=== PATIENT | male | born 1960 | race Caucasian/White ===

== ENCOUNTER 2016-05-18 16:53 | Inpatient (IN) | payer MEDICARE, BC ==
[2016-05-18] MEDS ORDERED: DIAZEPAM 5 MG/ML 2 ML SYRINGE IVP STA (17:44)
[2016-05-18] MEDS ORDERED: ONDANSETRON 4 MG/2 ML VIAL IVP STA (17:44)
[2016-05-18] MEDS ORDERED: THIAMINE 100 MG/ML 2 ML VIAL IM STA (17:44)
[2016-05-18] MEDS ORDERED: SODIUM CHLORIDE 0.9% 1,000 ML IV STA (17:44)
[2016-05-18] MEDS ORDERED: SODIUM CHLORIDE 0.9% 1,000 ML IV ONE (17:44)
[2016-05-18] MEDS ORDERED: SODIUM CHLORIDE 0.9% 2,000 ML IV STA (17:44)
--- NOTE | 2016-05-18 17:44 | ED ---
General Adult HPI - General Chief complaint: Abdominal Pain Stated complaint: acute pancreatitis Time Seen by Provider: 05/18/16 17:01 Source: patient, EMS, RN notes reviewed, old records reviewed Mode of arrival: EMS Limitations: no limitations - History of Present Illness Initial comments: This is a 35-year-old male year for evaluation of abdominal pain and pancreatitis and alcohol ketoacidosis. Patient's transfer patient from [facility] for treatment of the above issues. Patient states he is currently resting comfortably specific or significant abdominal pain, little agitation secondary being polo around in the back exam is but no other complaints, no active nausea and vomiting. Symptoms at this point aren't improved - Related Data Home Medications Medication Instructions Recorded Confirmed Gabapentin [Neurontin] 400 mg PO TID 05/18/16 05/18/16 Hydrocodone/Acetaminophen [[place] 1 tab PO Q6HR PRN 05/18/16 05/18/16 7.5-325] traMADol HCL [Ultram] 50 mg PO Q6HR PRN 05/18/16 05/18/16 Allergies Allergy/AdvReac Type Severity Reaction Status Date / Time No Known Drug Allergies AdvReac Unknown Verified 05/18/16 17:19 Review of Systems ROS Statement: Those systems with pertinent positive or pertinent negative responses have been documented in the HPI. ROS Other: All systems not noted in ROS Statement are negative. Past Medical History Additional Past Medical History / Comment(s): Chronic pain in the right arm, alcoholic, pancreatitis, liver inflammation per pt History of Any Multi-Drug Resistant Organisms: None Reported Additional Past Surgical History / Comment(s): Neck surgery, lung surgery, Past Psychological History: No Psychological Hx Reported Smoking Status: Current every day smoker Past Alcohol Use History: Abuse, Daily, Heavy Past Drug Use History: Marijuana General Exam Limitations: no limitations General appearance: alert, in no apparent distress, anxious Head exam: Present: atraumatic, normocephalic, normal inspection Eye exam: Present: normal appearance, PERRL, EOMI. Absent: scleral icterus, conjunctival injection, periorbital swelling ENT exam: Present: mucous membranes dry, mucous membranes moist Neck exam: Present: normal inspection. Absent: tenderness, meningismus, lymphadenopathy Respiratory exam: Present: normal lung sounds bilaterally. Absent: respiratory distress, wheezes, rales, rhonchi, stridor Cardiovascular Exam: Present: normal rhythm, tachycardia, normal heart sounds. Absent: systolic murmur, diastolic murmur, rubs, gallop, clicks GI/Abdominal exam: Present: soft, normal bowel sounds. Absent: distended, tenderness, guarding, rebound, rigid Extremities exam: Present: normal inspection, full ROM, normal capillary refill. Absent: tenderness, pedal edema, joint swelling, calf tenderness Back exam: Present: normal inspection Neurological exam: Present: alert, oriented X3, CN II-XII intact Psychiatric exam: Present: normal affect, normal mood Skin exam: Present: warm, dry, intact, normal color. Absent: rash Course Vital Signs 05/18/16 16:57 Temperature 97.4 F L Pulse Rate 117 H Respiratory 14 Rate Blood Pressure 115/74 - Reevaluation(s) Reevaluation #1: 05/18/16 17:43 Patient does appear to be having mild symptoms of alcohol withdrawal at this time, we'll start patient on every 6 Valium and CIWA protocol 05/18/16 17:43 Medical Decision Making - Medical Decision Making 55 to ER for alcoholic ketoacidosis, alcoholic withdrawal pancreatitis. Patient will be admitted for IV fluid, hemogram and monitoring Disposition Clinical Impression: Alcohol withdrawal delirium, Alcoholic pancreatitis, Alcoholic ketoacidosis Disposition: ADMITTED IP TO THIS HOSP Condition: Fair Referrals: Kosta Da Silva DO [Primary Care Provider] - 1-2 days
[2016-05-18] MEDS ORDERED: DEXTROSE 5%-0.45% NACL 1,000 ML IV SCH (17:45)
[2016-05-18] MEDS: THIAMINE 100 MG TAB PO SCH (20:31)
[2016-05-18 20:34] LABS: INR 1.1 (<1.1); Prothrombin Time 10.9 sec (9.0-12.0)
[2016-05-18] MEDS: HYDROmorphone 1 MG/ML 1 ML SYRINGE IVP PRN (20:37)
[2016-05-18] MEDS: LORazepam 2 MG/ML SYRINGE IV PRN ×2 (20:47→22:00)
[2016-05-18] MEDS ORDERED: HALOPERIDOL 5 MG TAB PO PRN (20:54)
[2016-05-18 20:56] LABS: ALT 80 U/L (21-72); AST 170 U/L (17-59); Alkaline Phosphatase 151 U/L (38-126); Amylase 108 U/L (30-110); Anion Gap 25 mmol/L; Blood Urea Nitrogen 6 mg/dL (9-20); Calcium 7.9 mg/dL (8.4-10.2); Chloride 108 mmol/L (98-107); Glucose 72 mg/dL (74-99); Non-African American GFR(MDRD) >60 (>60 ml/min/1.73 sqM); Potassium 4.5 mmol/L (3.5-5.1); Sodium 141 mmol/L (137-145); Total Bilirubin 1.3 mg/dL (0.2-1.3); Total Protein 6.9 g/dL (6.3-8.2)
[2016-05-18 20:58] LABS: Carbon Dioxide 8 mmol/L (22-30)
[2016-05-18 21:06] LABS: Anisocytosis Slight; Basophils % (A) 0 %; CH 33.3; CHCM 30.2; Eosinophils % (A) 0 %; HCT 40.6 % (39.0-53.0); HDW 2.54; HGB 12.6 gm/dL (13.0-17.5); Hypochromasia Moderate; Luc # (Auto) 0.06; Luc % (Auto) 1; Lymphocytes # (A) 0.6 k/uL (1.0-4.8); Lymphocytes % (A) 9 %; MCH 34.4 pg (25.0-35.0); MCHC 31.1 g/dL (31.0-37.0); MCV 110.6 fL (80.0-100.0); Macrocytosis Marked; Monocytes # (A) 0.3 k/uL (0-1.0); Monocytes % (A) 5 %; Neutrophils # (A) 5.7 k/uL (1.3-7.7); Neutrophils % (A) 85 %; RBC 3.67 m/uL (4.30-5.90); RDW 17.7 % (11.5-15.5); WBC 6.7 k/uL (3.8-10.6); WBC (Perox) 7.49
[2016-05-18 21:23] LABS: Polychromasia Present
[2016-05-18 22:10] LABS: ABG PH 7.16 (7.35-7.45)
[2016-05-18 22:11] LABS: ABG HCO3 12 mmol/L (21-25); ABG PCO2 35 mmHg (35-45); ABG PO2 76 mmHg (83-108); ABG TCO2 13 mmol/L (19-24)
[2016-05-18 22:12] LABS: ABG Base Excess -15.3 mmol/L
[2016-05-18 22:13] LABS: ABG Oxygen Saturation 90.7 % (94-97)
[2016-05-18] MEDS: DEXTROSE 5% IN WATER 1,000 ML with SODIUM BICARB (1 MEQ/ML) 150 ML IV SCH ×2 (22:26→23:02)
[2016-05-18 22:27] LABS: Magnesium 1.4 mg/dL (1.6-2.3)
[2016-05-18] MEDS: 0.9% NACL WITH KCL 20 MEQ/L 1,000 ML with MVI, ADULT NO.4 WITH VIT K 10 ML, THIAMINE 10... IV SCH ×4 (22:29)
[2016-05-18] MEDS ORDERED: Magnesium Replacement Protocol 1 EACH MISC MISCELLANE PRN (22:40)
[2016-05-18] MEDS: HEPARIN SODIUM,PORCINE 5,000 UNIT/ML 1 ML VIAL SQ SCH (22:55)
[2016-05-18] MEDS: PANTOPRAZOLE 40 MG/10 ML VIAL IVP SCH (22:55)
[2016-05-18] MEDS: GABAPENTIN 400 MG CAP PO SCH (22:56)
[2016-05-18] MEDS: MAGNESIUM SULFATE-D5W PMX 1 GM in DEXTROSE/WATER 1 100ML.BAG IVPB SCH (23:47)
[2016-05-19 00:26] LABS: Glucose,Whole Blood 113 mg/dL (75-99)
[2016-05-19] MEDS: MAGNESIUM SULFATE-D5W PMX 1 GM in DEXTROSE/WATER 1 100ML.BAG IVPB SCH ×2 (00:57→02:00)
[2016-05-19 02:16] LABS: ABG PCO2 30 mmHg (35-45)
[2016-05-19 02:17] LABS: ABG HCO3 14 mmol/L (21-25); ABG PO2 88 mmHg (83-108); ABG TCO2 15 mmol/L (19-24)
[2016-05-19] MEDS: LORazepam 2 MG/ML SYRINGE IV PRN ×5 (02:41→23:03)
[2016-05-19] MEDS: HYDROmorphone 1 MG/ML 1 ML SYRINGE IVP PRN ×5 (02:57→23:32)
[2016-05-19 05:03] LABS: ALT 74 U/L (21-72); AST 149 U/L (17-59); Alkaline Phosphatase 141 U/L (38-126); Amylase 74 U/L (30-110); Anion Gap 19 mmol/L; Blood Urea Nitrogen 6 mg/dL (9-20); Calcium 7.6 mg/dL (8.4-10.2); Carbon Dioxide 14 mmol/L (22-30); Chloride 105 mmol/L (98-107); Cholesterol 159 mg/dL (<200); Glucose 145 mg/dL (74-99); HDL Cholesterol 94 mg/dL (40-60); Magnesium 2.5 mg/dL (1.6-2.3); Non-African American GFR(MDRD) >60 (>60 ml/min/1.73 sqM); Phosphorous 1.9 mg/dL (2.5-4.5); Prothrombin Time 10.3 sec (9.0-12.0); Sodium 138 mmol/L (137-145); Total Bilirubin 1.3 mg/dL (0.2-1.3); Triglycerides 200 mg/dL (<150)
[2016-05-19 05:12] LABS: Anisocytosis Slight; CHCM 31.3; HCT 35.7 % (39.0-53.0); HDW 2.59; HGB 11.3 gm/dL (13.0-17.5); Hypochromasia Slight; MCH 34.4 pg (25.0-35.0); MCHC 31.6 g/dL (31.0-37.0); MCV 108.8 fL (80.0-100.0); Macrocytosis Marked; RBC 3.28 m/uL (4.30-5.90); RDW 17.8 % (11.5-15.5); WBC 4.2 k/uL (3.8-10.6); WBC (Perox) 4.67
[2016-05-19] MEDS: 0.9% NACL WITH KCL 20 MEQ/L 1,000 ML with MVI, ADULT NO.4 WITH VIT K 10 ML, THIAMINE 10... IV SCH ×12 (06:25→16:54)
[2016-05-19 06:30] LABS: Glucose,Whole Blood 160 mg/dL (75-99)
[2016-05-19] MEDS: INSULIN LISPRO (humaLOG) 300 UNIT/3 ML VIAL SQ SCH ×3 (06:43→17:58)
[2016-05-19 06:51] LABS: Add Differential Manual Differential
[2016-05-19 06:55] LABS: Nucleated Red Blood Cells 0 /100 WBC (0-0); Total Cells Counted 100
[2016-05-19] MEDS ORDERED: Phosphorus Replacement Protoco 1 EACH MISC MISCELLANE PRN (06:56)
[2016-05-19 06:59] LABS: Manual Review Performed
[2016-05-19] MEDS: SODIUM PHOSPHATE 10 MMOL in SODIUM CHLORIDE 0.9% 250 ML IVPB SCH ×2 (07:46→10:11)
[2016-05-19] MEDS: PANTOPRAZOLE 40 MG/10 ML VIAL IVP SCH (08:00)
[2016-05-19] MEDS: GABAPENTIN 400 MG CAP PO SCH ×3 (08:00→22:35)
[2016-05-19] MEDS: HEPARIN SODIUM,PORCINE 5,000 UNIT/ML 1 ML VIAL SQ SCH ×2 (08:00→20:52)
--- NOTE | 2016-05-19 08:10 | XR ---
EXAMINATION TYPE: XR chest 1V DATE OF EXAM: 05/19/2016 6:54 AM COMPARISON: NONE HISTORY: 55-year-old male with shortness of breath TECHNIQUE: Single frontal view of the chest is obtained. FINDINGS: Low lung volumes with crowded vascular markings. Strandy opacities at the lower lungs. Bony vasculatu re may be mildly prominent. No lyndsey consolidation or significant pleural effusion. IMPRESSION: Hypoventilatory changes. Strandy atelectasis in the lung bases. Correlate for possible mild pulmonary vascular congestion.
--- NOTE | 2016-05-19 08:52 | HP ---
DATE OF ADMISSION: 05/18/2016 CHIEF COMPLAINT: Abdominal pain. HISTORY OF PRESENT ILLNESS: This 55-year-old gentleman with a past medical history of multiple medical problems including chronic liver disease, history of chronic pain, history of alcoholic pancreatitis, history of liver inflammation, history of significant alcohol intake being followed by Dr. Da Silva in [place], presented to [facility] with complaints of abdominal pain. The abdominal pain started about 2 or 3 days ago, started with pain on the side subsequently to the anterior part of the chest and patient also had some vomiting. The patient Hospital and was transferred to [facility] for further evaluation and treatment. The patient is slightly confused. The patient is tremulous, the patient has early signs of delirium tremens, alcohol withdrawals also. There is no history of headache, loss of consciousness or seizures. PAST MEDICAL HISTORY: History of liver disease, chronic pain syndrome, history of alcoholic pancreatitis, history of neck surgery, degenerative joint disease, history of nicotine dependence. History of claustrophobia. MEDICATIONS: Prior to admission include: 1. Hydrocodone 1 tablet q.6 p.r.n. 2. Ultram 50 mg q6h p.r.n. 3. Neurontin 400 mg t.i.d. ALLERGIES: None. FAMILY HISTORY: History of cystic fibrosis. SOCIAL HISTORY: History of smoking on a daily basis. History of alcohol also up to a fifth of hard liquor. REVIEW OF SYSTEMS: ENT: No diminished vision. No diminished hearing. CARDIOVASCULAR: No angina or palpitation. RESPIRATORY: No cough. GI: As mentioned earlier. : No dysuria. Nervous system: No numbness, weakness. ALLERGY/IMMUNOLOGY: No asthma or hayfever. MUSCULOSKELETAL: As mentioned earlier. HEMATOLOGY/ONCOLOGY: No history of anemia. ENDOCRINE: No history of diabetes or hypothyroidism. CONSTITUTIONAL: As mentioned earlier. DERMATOLOGY: Negative. RHEUMATOLOGY: Negative. PSYCHIATRY: As mentioned earlier. PHYSICAL EXAMINATION: Alert and oriented times three. Pulse 115. Blood pressure 143/92. Respiratory rate 14. Temperature 98.2, pulse ox 97% on 2 L. HEENT: Conjunctivae normal. NECK: No jugular venous distention. CARDIOVASCULAR: S1, S2 muffled. RESPIRATORY: Breath sounds diminished at the bases, a few scattered rhonchi, no crackles. ABDOMEN: Soft. Mild diffuse distention. Mild diffuse discomfort on palpation. No guarding or rigidity. No mass palpable. Minimal tenderness in the epigastrium. Bowel sounds present. No ascites. No hepatosplenomegaly. No guarding, no rigidity. Legs: No edema, no swelling. Nervous system: Higher function as mentioned earlier. Moves all 4 limbs. No focal motor or sensory deficits. LYMPHATICS: No lymph nodes palpable in the neck, axillae or groin. cranial nerves II through XII grossly intact. Lab investigations are pending at this time. INR is 1.1. ASSESSMENT: 1. Acute severe pancreatitis, severe abdominal pain. 2. Early delirium tremens and alcohol withdrawal. 3. History of alcoholic pancreatitis. 4. Chronic pain syndrome. 5. History of chronic liver disease. 6. Significant history ETOH. 7. Claustrophobia. 8. History of nicotine dependence. 9. History of THC. 10. FULL CODE. RECOMMENDATIONS AND DISCUSSION: In this 55 -year-old gentleman presented with multiple complex medical issues. We will monitor the patient closely. Continue the current medications. Continue symptomatic treatment. Otherwise, at this time, I recommend amylase, lipase, and continue to monitor. Would also recommend gastroenterology consultation and , continue symptomatic treatment. Continue to monitor. Guarded prognosis because of multiple complex medical issues. Further recommendations to follow. See orders for further details. Pain medications. CIWA protocol. Alcohol withdrawal precautions. DVT prophylaxis. Guarded prognosis because of multiple complex medical issues. Further recommendations to follow. Labs were ordered. A copy of dictation being forwarded to Dr. Da Silva who is the primary care physician. [facility]
[2016-05-19 08:58] LABS: ABG HCO3 19 mmol/L (21-25); ABG PCO2 35 mmHg (35-45); ABG PH 7.35 (7.35-7.45); ABG PO2 93 mmHg (83-108); ABG TCO2 20 mmol/L (19-24)
[2016-05-19 08:59] LABS: ABG Base Excess -5.9 mmol/L
--- NOTE | 2016-05-19 10:13 | P.CONS ---
History of Present Illness - Reason for Consult Consult date: 05/19/16 Pancreatitis Requesting physician: Ravindra Andrea - History of Present Illness 55-year-old gentleman with a history of long-standing EtOH abuse drinks a fifth of whiskey a day, nicotine cigarette dependency, marijuana, lung surgery requiring chest tube, and degenerative disc disease. Patient may with acute abdominal pain in the upper abdomen for the last few days with elevated lipase and liver enzymes. Admission white count 6.7. Hemoglobin 12.6. MCV 110. Platelet 106. INR 1.1. Blood gas pH 7.1. Receiving intravenous bicarbonate. Total bilirubin 1.3. AST 170. ALT 80. BUN 6. Creatinine 0.9. CO2 8. Glucose 72. Calcium 7.9. Alkaline phosphatase 151. Lipase 2260. Amylase 74. Serum alcohol 33. CO2 8. BUN 6. Creatinine 0.9. Glucose 72. Calcium 7.9. Triglycerides 200. Ammonia 32. Ultrasound abdomen pending. No reports of fever, chills, hematemesis, hematochezia, or melena. Review of Systems Constitutional: Denies fever, chills, sweats, weight gain, or loss. HEENT: Negative for migraines, blurred vision or loss, earaches, drainage, tinnitus, oral mucosal lesions, dysphagia, or odynophagia. Cardiac: Negative for chest pain, arrhythmias, or palpitation. Respiratory: Lung surgery requiring chest tube. Nicotine cigarette dependency. Marijuana. Negative for shortness of breath, hemoptysis, cough, or sputum production. Gastrointestinal: See HPI for pertinent findings. Genitourinary: Negative for hematuria, urgency, frequency, polyuria, dysuria, or penile discharge. Musculoskeletal: Degenerative disc disease. Negative for muscle aches, swelling , arthritis, and arthralgias. Neurologic: Negative for stroke or TIA. Endocrine: Negative for thyroid problems. Skin: Negative for rash or itching. Psychiatric: Negative history for depression and anxiety All systems: negative (See HPI) Past Medical History Past Medical History: Liver Disease Additional Past Medical History / Comment(s): Chronic pain in the right arm, alcoholic, pancreatitis, liver inflammation per pt, DDD, UPPER BRIDGE History of Any Multi-Drug Resistant Organisms: None Reported Additional Past Surgical History / Comment(s): Neck surgery HAS A PLATE, lung surgery D/T INFECTION HAD A CHEST TUBE AFTER SX., Past Anesthesia/Blood Transfusion Reactions: No Reported Reaction Additional Past Anesthesia/Blood Transfusion Reaction / Comm: CLAUSTERPHOBIA Past Psychological History: No Psychological Hx Reported Additional Psychological History / Comment(s): PT STATED HE IS CURRENTLY SEPARATE FROM HIS . LIVES ALONE WITH 1 [employer]. NO HOME CARE SERVICES AND NO HOSITAL EQUIPMENT. PT IS INDEPENDANT. HAS 3 STEPS TO GET INTO HOME. NO SERVICE IN PAST. REITED FROM [employer]. Smoking Status: Current every day smoker Past Alcohol Use History: Abuse, Daily, Heavy Additional Past Alcohol Use History / Comment(s): STARTED SMOKING AT AGE 16 ( 1976) SMOKED 1/2-1 PPD. ADMIKTS TO DRINKING 1/2 TO 1 FITH OF WHISKEY PER DAY Past Drug Use History: Marijuana Additional Drug Use History / Comment(s): HAS'NT USED ANY MARIJUANA IN 2-3 WEEKS. - Past Family History Mother Additional Family Medical History / Comment(s): FROM CYSTIC FIBROSIS Father Family Medical History: No Reported History Additional Family Medical History / Comment(s): FROM "NATURAL CAUSES" Medications and Allergies Home Medications Medication Instructions Recorded Confirmed Type Gabapentin [Neurontin] 400 mg PO TID 05/18/16 05/18/16 History Hydrocodone/Acetaminophen [[place] 1 tab PO Q6HR PRN 05/18/16 05/18/16 History 7.5-325] traMADol HCL [Ultram] 50 mg PO Q6HR PRN 05/18/16 05/18/16 History Allergies Allergy/AdvReac Type Severity Reaction Status Date / Time No Known Drug Allergies AdvReac Unknown Verified 05/18/16 17:19 Physical Exam Vitals: Vital Signs Temp Pulse Resp BP Pulse Ox 05/19/16 09:00 104 H 12 156/92 95 05/19/16 08:00 98.8 F 113 H 14 162/92 95 05/19/16 07:00 108 H 11 L 154/92 92 L 05/19/16 06:00 103 H 12 174/94 95 05/19/16 05:00 105 H 11 L 168/84 95 05/19/16 04:00 98.1 F 110 H 11 L 141/81 94 L 05/19/16 03:00 111 H 14 167/80 92 L 05/19/16 02:00 114 H 13 151/79 94 L 05/19/16 01:00 116 H 11 L 148/81 94 L 05/19/16 00:00 99.8 F H 113 H 10 L 136/82 95 05/18/16 23:30 113 H 10 L 152/84 95 05/18/16 23:00 115 H 9 L 142/90 96 05/18/16 22:30 99 F 112 H 12 142/90 93 L 05/18/16 19:05 98.2 F 115 H 14 143/92 96 05/18/16 18:38 114 H 12 118/74 93 L 05/18/16 18:32 117 H 14 140/86 95 Intake and Output 05/18/16 05/19/16 05/19/16 22:59 06:59 14:59 Intake Total 2275 725 Output Total 275 Balance 1999 725 Intake: Intake, IV Titration 2274 725 Amount 0.9% NaCl with KCl 20 Meq 1200 300 /l 1,000 ml @ 150 mls/hr IV .[id number] MARTHA with Mvi, Adult No.4 with Vit K 10 ml with Thiamine 100 mg with Folic Acid 1 mg Rx#: [id number] Dextrose 5% in Water 1, 775 300 000 ml @ 100 mls/hr IV . [id number] MARTHA with Sodium Bicarb (1 Meq/ml) 150 ml Rx#:[id number] Magnesium Sulfate-D5w Pmx 300 1 gm In Dextrose/Water 1 100ml.bag @ 100 mls/hr IVPB Q1H MARTHA Rx#: [id number] Sodium Phosphate 10 mmol 125 In Sodium Chloride 0.9% 250 ml @ 125 mls/hr IVPB Q2H MARTHA Rx#:[id number] Output: Urine 275 Other: Voiding Method Urinal Urinal # Voids 1 Weight 68.311 kg General appearance: The patient is drowsy but awakens with appropriate conversation. HET: Head is normocephalic and atraumatic. Pupils are equal and reactive. Oropharynx is clear without lesions. Neck: Supple without lymphadenopathy. Trachea midline. Heart: S1 S2. Regular rate and rhythm. Lungs: No crackles or wheezes are heard. Abdomen: Soft, bloated tenderness midepigastrium with hypoactive bowel sounds. No peritoneal signs. No palpable organomegaly or masses. Extremities: Normal skin color and turgor. No cyanosis, rash, ulceration, clubbing, or edema. Radial and pedal pulses are 2/4 bilaterally. Neurological: Intermittent shakiness while resting. Results CBC & Chem 7: 05/19/16 03:57 05/19/16 03:57 Labs: Abnormal Lab Results - Last 24 Hours (Table) 05/18/16 05/18/16 05/18/16 Range/Units 20:13 20:13 21:32 RBC 3.67 L (4.30-5.90) m/uL Hgb 12.6 L (13.0-17.5) gm/dL Hct (39.0-53.0) % MCV 110.6 H (80.0-100.0) fL RDW 17.7 H (11.5-15.5) % Plt Count 106 L (150-450) k/uL Lymphocytes # 0.6 L (1.0-4.8) k/uL Lymphocytes # (Manual) (1.0-4.8) k/uL ABG pH 7.16 L* (7.35-7.45) ABG pCO2 (35-45) mmHg ABG pO2 76 L (83-108) mmHg ABG HCO3 12 L (21-25) mmol/L ABG Total CO2 13 L (19-24) mmol/L ABG O2 Saturation 90.7 L (94-97) % Chloride 108 H (98-107) mmol/L Carbon Dioxide 8 L* (22-30) mmol/L BUN 6 L (9-20) mg/dL Glucose 72 L (74-99) mg/dL POC Glucose (mg/dL) (75-99) mg/dL Calcium 7.9 L (8.4-10.2) mg/dL Phosphorus (2.5-4.5) mg/dL Magnesium (1.6-2.3) mg/dL AST 170 H (17-59) U/L ALT 80 H (21-72) U/L Alkaline Phosphatase 151 H (38-126) U/L Total Protein (6.3-8.2) g/dL Albumin (3.5-5.0) g/dL Triglycerides (<150) mg/dL HDL Cholesterol (40-60) mg/dL Lipase (23-300) U/L 05/18/16 05/19/16 05/19/16 Range/Units 21:48 00:24 02:10 RBC (4.30-5.90) m/uL Hgb (13.0-17.5) gm/dL Hct (39.0-53.0) % MCV (80.0-100.0) fL RDW (11.5-15.5) % Plt Count (150-450) k/uL Lymphocytes # (1.0-4.8) k/uL Lymphocytes # (Manual) (1.0-4.8) k/uL ABG pH 7.30 L (7.35-7.45) ABG pCO2 30 L (35-45) mmHg ABG pO2 (83-108) mmHg ABG HCO3 14 L (21-25) mmol/L ABG Total CO2 15 L (19-24) mmol/L ABG O2 Saturation (94-97) % Chloride (98-107) mmol/L Carbon Dioxide (22-30) mmol/L BUN (9-20) mg/dL Glucose (74-99) mg/dL POC Glucose (mg/dL) 113 H (75-99) mg/dL Calcium (8.4-10.2) mg/dL Phosphorus (2.5-4.5) mg/dL Magnesium 1.4 L (1.6-2.3) mg/dL AST (17-59) U/L ALT (21-72) U/L Alkaline Phosphatase (38-126) U/L Total Protein (6.3-8.2) g/dL Albumin (3.5-5.0) g/dL Triglycerides (<150) mg/dL HDL Cholesterol (40-60) mg/dL Lipase (23-300) U/L 05/19/16 05/19/16 05/19/16 Range/Units 03:57 03:57 06:28 RBC 3.28 L (4.30-5.90) m/uL Hgb 11.3 L (13.0-17.5) gm/dL Hct 35.7 L (39.0-53.0) % MCV 108.8 H (80.0-100.0) fL RDW 17.8 H (11.5-15.5) % Plt Count 64 L (150-450) k/uL Lymphocytes # (1.0-4.8) k/uL Lymphocytes # (Manual) 0.7 L (1.0-4.8) k/uL ABG pH (7.35-7.45) ABG pCO2 (35-45) mmHg ABG pO2 (83-108) mmHg ABG HCO3 (21-25) mmol/L ABG Total CO2 (19-24) mmol/L ABG O2 Saturation (94-97) % Chloride (98-107) mmol/L Carbon Dioxide 14 L (22-30) mmol/L BUN 6 L (9-20) mg/dL Glucose 145 H (74-99) mg/dL POC Glucose (mg/dL) 160 H (75-99) mg/dL Calcium 7.6 L (8.4-10.2) mg/dL Phosphorus 1.9 L (2.5-4.5) mg/dL Magnesium 2.5 H (1.6-2.3) mg/dL AST 149 H (17-59) U/L ALT 74 H (21-72) U/L Alkaline Phosphatase 141 H (38-126) U/L Total Protein 6.0 L (6.3-8.2) g/dL Albumin 3.4 L (3.5-5.0) g/dL Triglycerides 200 H (<150) mg/dL HDL Cholesterol 94 H (40-60) mg/dL Lipase 2260 H (23-300) U/L 05/19/16 Range/Units 08:32 RBC (4.30-5.90) m/uL Hgb (13.0-17.5) gm/dL Hct (39.0-53.0) % MCV (80.0-100.0) fL RDW (11.5-15.5) % Plt Count (150-450) k/uL Lymphocytes # (1.0-4.8) k/uL Lymphocytes # (Manual) (1.0-4.8) k/uL ABG pH (7.35-7.45) ABG pCO2 (35-45) mmHg ABG pO2 (83-108) mmHg ABG HCO3 19 L (21-25) mmol/L ABG Total CO2 (19-24) mmol/L ABG O2 Saturation (94-97) % Chloride (98-107) mmol/L Carbon Dioxide (22-30) mmol/L BUN (9-20) mg/dL Glucose (74-99) mg/dL POC Glucose (mg/dL) (75-99) mg/dL Calcium (8.4-10.2) mg/dL Phosphorus (2.5-4.5) mg/dL Magnesium (1.6-2.3) mg/dL AST (17-59) U/L ALT (21-72) U/L Alkaline Phosphatase (38-126) U/L Total Protein (6.3-8.2) g/dL Albumin (3.5-5.0) g/dL Triglycerides (<150) mg/dL HDL Cholesterol (40-60) mg/dL Lipase (23-300) U/L US - abdomen: pending Assessment and Plan (1) Acute alcoholic pancreatitis Status: Acute (2) Alcohol withdrawal delirium Status: Acute Plan: 1. Aggressive IV hydration maintenance fluids at 150 mL an hour. 2. Alcohol withdrawal protocol. Nothing by mouth except medications and ice chips. 3. Ultrasound abdomen; results pending. 4. Alcohol abstinence advised and counseled. 5. Repeat liver pancreatic chemistries ammonia level in the a.m. 6. GI prophylaxis. Protonix 40 mg IV daily. Thank you for this kind referral and the opportunity to participate in the care of your patient. This consultation was discussed with Dr. Mcmillan. The impression and plan of care have been directed as dictated.
[2016-05-19 10:20] LABS: Appearance,Urine Clear (Clear); Bacteria,Urine Rare /hpf; Bilirubin,Urine 1+ (Negative); Glucose,Urine (UA) Negative (Negative); Ketones,Urine 4+ (Negative); Leukocyte Esterase,Urine Negative (Negative); Mucus,Urine Rare /hpf; Nitrite,Urine Negative (Negative); Particle Count 4327; Protein,Urine 1+ (Negative); RBC,Urine <1 /hpf (0-5); Specific Gravity,Urine 1.024 (1.001-1.035); Squamous Epithelial Cell,Urine 4 /hpf (0-4); UA Billing (MACRO vs. MICRO) MICRO; WBC,Urine <1 /hpf (0-5)
[2016-05-19] MEDS: LACTULOSE 20 GM/30 ML CUP PO SCH (10:38)
--- NOTE | 2016-05-19 10:38 | US ---
EXAMINATION TYPE: US abdomen limited DATE OF EXAM: 05/19/2016 9:56 AM COMPARISON: NONE CLINICAL HISTORY: 55-year-old male with elevated Liver Enzymes. ICU patient. TECHNIQUE: Multiple sonographic images of the right upper quadrant are obtained. FINDINGS: Liver Length: 23.8 cm Gallbladder Wall: 0.4 cm CBD: 7.3 mm Right Kidney: 11.2 x 5.3 x 4.6 cm Pancreas: limited views secondary to bowel gas. Liver: Enlarged, echogenic, and attenuating. This secondarily limits assessment for focal lesion. Gallbladder: There may be trace pericholecystic fluid versus adjacent focal fatty sparing along the gallbladder fossa. Gallbladder wall is mildly thickened and there is suggestion of dependent sludge. Evidence for sonographic Alatorre's sign: no CBD: Borderline to mildly dilated. Right Kidney: wnl IMPRESSION: 1. Marked hepatomegaly and severe hepatic steatosis. Correlate with LFTs, lipid profile, and patient risk factors. 2. Correlate to exclude early acute cholecystitis. There is mild gallbladder wall thickening and slud ge. This is equivocal as possible pericholecystic fluid could represent fatty sparing along the gallb ladder fossa and there is no positive sonographic Alatorre's sign. Further evaluation with HIDA scan as indicated. 3. Borderline to mild dilatation of the bile duct. Correlate with alkaline phosphatase and bilirubin levels.
--- NOTE | 2016-05-19 12:52 | P.CNPUL ---
History of Present Illness Consult date: 05/19/16 Requesting physician: Ravindra Andrea Reason for consult: other (ICU management) Chief complaint: abdominal pain History of present illness: this is a 55-year-old white male with history of long-standing history of alcohol abuse, patient drinks a fifth of whiskey on a daily basis, history of nicotine dependence, degenerative disc disease, presented to the ER with acute abdominal pain associated with some nausea vomiting and diarrhea. Patient was initially admitted to the regular medical floor, however the A TEAM was called on the patient at night, were and the patient was getting restless agitated, and an ABG showed significant metabolic acidosis. Hence I recommended transferring the patient to the ICU placed on a sodium bicarb drip, and I was asked to see him on consultation. Patient is not the best historian. His labs clearly revealed evidence of pancreatitis with significantly elevated amylase and lipase. He also had a serum alcohol of 33, bicarb was only 8, and his pH was 7.1. Ammonia level was 32. Review of Systems ROS unobtainable: due to mental status Past Medical History Past Medical History: Liver Disease Additional Past Medical History / Comment(s): Chronic pain in the right arm, alcoholic, pancreatitis, liver inflammation per pt, DDD, UPPER BRIDGE History of Any Multi-Drug Resistant Organisms: None Reported Additional Past Surgical History / Comment(s): Neck surgery HAS A PLATE, lung surgery D/T INFECTION HAD A CHEST TUBE AFTER SX., Past Anesthesia/Blood Transfusion Reactions: No Reported Reaction Additional Past Anesthesia/Blood Transfusion Reaction / Comment(s): CLAUSTERPHOBIA Past Psychological History: No Psychological Hx Reported Additional Psychological History / Comment(s): PT STATED HE IS CURRENTLY SEPARATE FROM HIS . LIVES ALONE WITH 1 [employer]. NO HOME CARE SERVICES AND NO HOSITAL EQUIPMENT. PT IS INDEPENDANT. HAS 3 STEPS TO GET INTO HOME. NO SERVICE IN PAST. REITED FROM [facility]. Smoking Status: Current every day smoker Past Alcohol Use History: Abuse, Daily, Heavy Additional Past Alcohol Use History / Comment(s): STARTED SMOKING AT AGE 16 ( 1976) SMOKED 1/2-1 PPD. ADMIKTS TO DRINKING 1/2 TO 1 FITH OF WHISKEY PER DAY Past Drug Use History: Marijuana Additional Drug Use History / Comment(s): HAS'NT USED ANY MARIJUANA IN 2-3 WEEKS. - Past Family History Mother Additional Family Medical History / Comment(s): FROM CYSTIC FIBROSIS Father Family Medical History: No Reported History Additional Family Medical History / Comment(s): FROM "NATURAL CAUSES" Medications and Allergies Home Medications Medication Instructions Recorded Confirmed Type Gabapentin [Neurontin] 400 mg PO TID 05/18/16 05/18/16 History Hydrocodone/Acetaminophen [[place] 1 tab PO Q6HR PRN 05/18/16 05/18/16 History 7.5-325] traMADol HCL [Ultram] 50 mg PO Q6HR PRN 05/18/16 05/18/16 History Allergies Allergy/AdvReac Type Severity Reaction Status Date / Time No Known Drug Allergies AdvReac Unknown Verified 05/18/16 17:19 Physical Exam Vitals: Vital Signs Temp Pulse Resp BP Pulse Ox 05/19/16 11:15 98 10 L 124/72 96 05/19/16 11:00 99 9 L 158/85 95 05/19/16 10:45 100 11 L 158/85 95 05/19/16 10:30 96 11 L 143/94 93 L 05/19/16 10:15 107 H 12 143/94 95 05/19/16 10:00 112 H 17 164/91 96 05/19/16 09:45 99 10 L 164/91 95 05/19/16 09:30 100 12 164/91 95 05/19/16 09:15 101 H 10 L 167/90 95 05/19/16 09:00 104 H 12 156/92 95 05/19/16 08:00 98.8 F 113 H 14 162/92 95 05/19/16 07:00 108 H 11 L 154/92 92 L 05/19/16 06:00 103 H 12 174/94 95 05/19/16 05:00 105 H 11 L 168/84 95 05/19/16 04:00 98.1 F 110 H 11 L 141/81 94 L 05/19/16 03:00 111 H 14 167/80 92 L 05/19/16 02:00 114 H 13 151/79 94 L 05/19/16 01:00 116 H 11 L 148/81 94 L 05/19/16 00:00 99.8 F H 113 H 10 L 136/82 95 05/18/16 23:30 113 H 10 L 152/84 95 05/18/16 23:00 115 H 9 L 142/90 96 05/18/16 22:30 99 F 112 H 12 142/90 93 L 05/18/16 19:05 98.2 F 115 H 14 143/92 96 05/18/16 18:38 114 H 12 118/74 93 L 05/18/16 18:32 117 H 14 140/86 95 Intake and Output 05/18/16 05/19/16 05/19/16 22:59 06:59 14:59 Intake Total 2275 1200 Output Total 275 950 Balance 2000 250 Intake: Intake, IV Titration 2275 1200 Amount 0.9% NaCl with KCl 20 Meq 1200 450 /l 1,000 ml @ 150 mls/hr IV .Q6H45M MARTHA with Mvi, Adult No.4 with Vit K 10 ml with Thiamine 100 mg with Folic Acid 1 mg Rx#: [id number] Dextrose 5% in Water 1, 775 500 000 ml @ 100 mls/hr IV . [id number] MARTHA with Sodium Bicarb (1 Meq/ml) 150 ml Rx#:[id number] Magnesium Sulfate-D5w Pmx 300 1 gm In Dextrose/Water 1 100ml.bag @ 100 mls/hr IVPB Q1H MARTHA Rx#: [id number] Sodium Phosphate 10 mmol 250 In Sodium Chloride 0.9% 250 ml @ 125 mls/hr IVPB Q2H MARTHA Rx#:[id number] Output: Urine 275 950 Uretheral (Toney) 250 Other: Voiding Method Urinal Urinal # Voids 1 Weight 68.311 kg Gen. appearance: Patient is drowsy but arousable, unable to maintain an appropriate conversation. HEENT: No neck masses no JVD no thyromegaly and no jaundice. Chest diminished breath sounds at the bases no crackles or rhonchi or wheezes Abdomen: Soft, slight tenderness in the epigastric area, hypoactive bowel sounds. Extremities no clubbing edema or cyanosis Neurologic, lethargic, follows simple instructions otherwise no focal neurologic deficit. Results - Laboratory Findings CBC and BMP: 05/19/16 03:57 05/19/16 03:57 ABG ABG pH 7.35 (7.35-7.45) 05/19/16 08:32 ABG pCO2 35 mmHg (35-45) 05/19/16 08:32 ABG pO2 93 mmHg (83-108) 05/19/16 08:32 ABG O2 Saturation 97.0 % (94-97) 05/19/16 08:32 PT/INR, D-dimer PT 10.3 sec (9.0-12.0) 05/19/16 03:57 INR 1.0 (<1.1) 05/19/16 03:57 Abnormal lab findings: Abnormal Labs 05/18/16 05/18/16 05/18/16 20:13 20:13 21:32 RBC 3.67 L Hgb 12.6 L Hct MCV 110.6 H RDW 17.7 H Plt Count 106 L Lymphocytes # 0.6 L Lymphocytes # (Manual) ABG pH 7.16 L* ABG pCO2 ABG pO2 76 L ABG HCO3 12 L ABG Total CO2 13 L ABG O2 Saturation 90.7 L Chloride 108 H Carbon Dioxide 8 L* BUN 6 L Glucose 72 L POC Glucose (mg/dL) Calcium 7.9 L Phosphorus Magnesium AST 170 H ALT 80 H Alkaline Phosphatase 151 H Ammonia Total Protein Albumin Triglycerides HDL Cholesterol Lipase Urine Protein Urine Ketones Urine Bilirubin Urine Bacteria Urine Mucus 05/18/16 05/19/16 05/19/16 21:48 00:24 02:10 RBC Hgb Hct MCV RDW Plt Count Lymphocytes # Lymphocytes # (Manual) ABG pH 7.30 L ABG pCO2 30 L ABG pO2 ABG HCO3 14 L ABG Total CO2 15 L ABG O2 Saturation Chloride Carbon Dioxide BUN Glucose POC Glucose (mg/dL) 113 H Calcium Phosphorus Magnesium 1.4 L AST ALT Alkaline Phosphatase Ammonia Total Protein Albumin Triglycerides HDL Cholesterol Lipase Urine Protein Urine Ketones Urine Bilirubin Urine Bacteria Urine Mucus 05/19/16 05/19/16 05/19/16 03:57 03:57 06:28 RBC 3.28 L Hgb 11.3 L Hct 35.7 L MCV 108.8 H RDW 17.8 H Plt Count 64 L Lymphocytes # Lymphocytes # (Manual) 0.7 L ABG pH ABG pCO2 ABG pO2 ABG HCO3 ABG Total CO2 ABG O2 Saturation Chloride Carbon Dioxide 14 L BUN 6 L Glucose 145 H POC Glucose (mg/dL) 160 H Calcium 7.6 L Phosphorus 1.9 L Magnesium 2.5 H AST 149 H ALT 74 H Alkaline Phosphatase 141 H Ammonia Total Protein 6.0 L Albumin 3.4 L Triglycerides 200 H HDL Cholesterol 94 H Lipase 2260 H Urine Protein Urine Ketones Urine Bilirubin Urine Bacteria Urine Mucus 05/19/16 05/19/16 05/19/16 08:32 09:15 10:00 RBC Hgb Hct MCV RDW Plt Count Lymphocytes # Lymphocytes # (Manual) ABG pH ABG pCO2 ABG pO2 ABG HCO3 19 L ABG Total CO2 ABG O2 Saturation Chloride Carbon Dioxide BUN Glucose POC Glucose (mg/dL) Calcium Phosphorus Magnesium AST ALT Alkaline Phosphatase Ammonia 32 H Total Protein Albumin Triglycerides HDL Cholesterol Lipase Urine Protein 1+ H Urine Ketones 4+ H Urine Bilirubin 1+ H Urine Bacteria Rare H Urine Mucus Rare H Assessment and Plan Plan: impression: 1 acute alcoholic pancreatitis 2 acute alcohol withdrawal and delirium 3 history of chronic pain syndrome 4 history of chronic liver disease 5 history of nicotine dependence Recommendation: Continue present treatment plan including hydration, sodium bicarb drip for now, alcohol withdrawal protocol, GI and DVT prophylaxis, close monitoring in the intensive care unit, and he is being seen by many other consultants including gastroenterology. We'll continue to follow. Time with Patient: Greater than 30
[2016-05-19] MEDS: THIAMINE 100 MG TAB PO SCH ×2 (12:59→17:52)
[2016-05-19 13:01] LABS: Glucose,Whole Blood 163 mg/dL (75-99)
[2016-05-19 16:12] LABS: Hemoglobin A1C 5.4 % (4.2-6.1)
[2016-05-19] MEDS: IOHEXOL 350 MG/ML 25 ML BOTTLE (ORAL USE) PO PRN ×2 (16:53→17:44)
[2016-05-19] MEDS: MEROPENEM 2 GM in SODIUM CHLORIDE 0.9% 100 ML IVPB SCH ×2 (17:52→23:38)
[2016-05-19 17:58] LABS: Glucose,Whole Blood 184 mg/dL (75-99)
--- NOTE | 2016-05-19 19:28 | CT ---
EXAMINATION TYPE: CT abdomen pelvis wo con DATE OF EXAM: 05/19/2016 6:32 PM COMPARISON: NONE HISTORY: Epigastric pain, possible cholecystitis. CT DLP: 561.60 mGycm Automated exposure control for dose reduction was used. TECHNIQUE: Helical acquisition of images was performed from the lung bases through the pelvis. FINDINGS: There is patchy infiltrate and atelectasis at the left lung base. There are mild bilateral pleural ef fusions. There is decreased density throughout the liver related to fatty infiltration. Gallbladder appears no rmal. Bile ducts are not dilated. Spleen appears normal. There is ascites. There is no sign of a panc reatic mass. There is no adrenal mass. Kidneys have normal size and contour. There is no hydronephros is. There is bilateral mild perinephric stranding. There is no retroperitoneal adenopathy. There is a Toney catheter in the urinary bladder. There is a small amount of air in the bladder. There is no pe lvic mass. Abdominal aorta is atheromatous. I see no intestinal wall thickening. There are no dilated loops. Appendix appears normal. I see no bony destructive process. IMPRESSION: THERE IS MODERATE ASCITES. FATTY INFILTRATION OF THE LIVER. BILATERAL SMALL PLEURAL EFFUSIONS WITH LEFT BASILAR PULMONARY INFILTRATE AND ATELECTASIS.
[2016-05-19] MEDS: ONDANSETRON 4 MG/2 ML VIAL IVP PRN (20:18)
--- NOTE | 2016-05-19 20:19 | PN ---
DATE OF SERVICE: 05/19/2016 This 55-year-old gentleman with a past medical history of multiple medical problems, including significant ethanol, was admitted with abdominal pain and acute pancreatitis. Patient also has significant metabolic acidosis. The pH was 7.11. Ammonia level was 33. Patient was transferred to ICU. The patient is on bicarb drip today. Sensorium is slightly improved. CO2 is also improving at this time. Dr. Sargent is following the patient as well as multiple other consultants. The pH has improved to 7.35 and CO2 is 14. Lipase was elevated up to 2260. LFTs were also elevated, indicating alcoholic hepatitis as well. The triglycerides are 200. Patient is on empiric antibiotics. Drug screen is positive for benzodiazepine as well as opiates, and alcohol level was 33. The abdominal ultrasound showed marked hepatomegaly and severe hepatic stenosis, possible early acute cholecystitis and mild gallbladder wall thickening and sludge; no positive sonographic Alatorre's sign. Past medical history reviewed. Review of systems could not be taken; the patient is still short of breath. Current medications are reviewed and include: 1. [place] 5 mg q.6 p.r.n. 2. Valium 5 mg q.4 p.r.n. 3. Neurontin 400 mg p.o. t.i.d. 4. Haldol 5 mg q.i.d. p.r.n. 5. Heparin 5000 units subcutaneously b.i.d. 6. Dilaudid. 7. Humalog. 8. Cephulac 20 daily. 9. Ativan. 10. Protonix. 11. Ultram. PHYSICAL EXAMINATION: Patient is alert and oriented x3. Pulse is 107, blood pressure 136/81, respiration 26, temperature normal, pulse ox 90% on room air. HEENT: Conjunctivae normal. NECK: No jugular venous distention. CARDIOVASCULAR SYSTEM: S1, S2 muffled. RESPIRATORY SYSTEM: Breath sounds diminished at the bases. Scattered rhonchi and crackles. ABDOMEN: Soft. Mild diffuse discomfort and tenderness also present. LEGS: No edema. No swelling. NERVOUS SYSTEM: No focal deficit. LABS: CBC within normal limits. Hemoglobin is 11.3. UA noted. MCV 108.8. Platelet are 64. Sodium 138, potassium 4. CO2 is 14. Phosphorus 1.9. Magnesium is 2.5. ASSESSMENT: 1. Acute severe pancreatitis with severe abdominal pain, present on admission. 2. Severe metabolic acidosis with possible early sepsis. 3. Rule out acute cholecystitis. 4. Early delirium tremens and alcohol withdrawal. 5. History of alcoholic pancreatitis. 6. Chronic pain syndrome. 7. History of chronic liver disease. 8. Significant history of ethanol. 9. Claustrophobia. 10. History of nicotine dependence. 11. History of tetrahydrocannabinol. 12. Hypoalbuminemia with mild to moderate protein-calorie malnutrition. 13. FULL CODE. RECOMMENDATIONS AND DISCUSSION: I recommend to continue with the current medications, continue with the monitoring, symptomatic treatment. Otherwise, at this time continue with the broad-spectrum IV antibiotics. I would recommend a surgical evaluation, also. Otherwise, continue to monitor. Guarded prognosis. Repeat labs. Monitor lipase, amylase closely. The patient is started on empiric antibiotics. Continue to monitor. I would also recommend a CT scan of the abdomen and pelvis. Otherwise, will monitor the patient closely. Guarded prognosis because of multiple complex medical issues. See orders for further details. Severe metabolic acidosis awaited, but the patient still has elevated LFTs and hypoalbuminemia. Once again, guarded prognosis. Further recommendations to follow. MTDD
[2016-05-19] MEDS: HYDROcodone/APAP 5-325MG 1 EACH TAB PO PRN (23:04)
[2016-05-19] MEDS: DEXTROSE 5% IN WATER 1,000 ML with SODIUM BICARB (1 MEQ/ML) 150 ML IV SCH (23:31)
[2016-05-20 00:19] LABS: Glucose,Whole Blood 145 mg/dL (75-99)
[2016-05-20] MEDS: INSULIN LISPRO (humaLOG) 300 UNIT/3 ML VIAL SQ SCH ×4 (00:21→18:15)
[2016-05-20] MEDS: 0.9% NACL WITH KCL 20 MEQ/L 1,000 ML with MVI, ADULT NO.4 WITH VIT K 10 ML, THIAMINE 10... IV SCH ×12 (01:14→15:42)
[2016-05-20] MEDS: DIAZEPAM 5 MG/ML 2 ML SYRINGE IVP PRN ×3 (01:39→20:12)
[2016-05-20] MEDS: LORazepam 2 MG/ML SYRINGE IV PRN ×5 (02:01→17:21)
[2016-05-20 05:13] LABS: Anisocytosis Slight; Basophils % (A) 0 %; CHCM 32.4; Eosinophils % (A) 1 %; HCT 33.9 % (39.0-53.0); HDW 2.58; HGB 11.3 gm/dL (13.0-17.5); Luc # (Auto) 0.06; Luc % (Auto) 2; Lymphocytes # (A) 0.7 k/uL (1.0-4.8); Lymphocytes % (A) 23 %; MCH 34.9 pg (25.0-35.0); MCHC 33.2 g/dL (31.0-37.0); MCV 104.9 fL (80.0-100.0); Macrocytosis Moderate; Mean Platelet Volume 8.2; Monocytes # (A) 0.1 k/uL (0-1.0); Monocytes % (A) 4 %; Neutrophils # (A) 2.3 k/uL (1.3-7.7); Neutrophils % (A) 71 %; RBC 3.24 m/uL (4.30-5.90); RDW 17.7 % (11.5-15.5); WBC 3.3 k/uL (3.8-10.6); WBC (Perox) 3.29
[2016-05-20 05:31] LABS: ALT 87 U/L (21-72); AST 219 U/L (17-59); Alkaline Phosphatase 148 U/L (38-126); Amylase <30 U/L (30-110); Anion Gap 6 mmol/L; Blood Urea Nitrogen 3 mg/dL (9-20); Calcium 7.7 mg/dL (8.4-10.2); Carbon Dioxide 31 mmol/L (22-30); Chloride 102 mmol/L (98-107); Glucose 133 mg/dL (74-99); Magnesium 1.9 mg/dL (1.6-2.3); Non-African American GFR(MDRD) >60 (>60 ml/min/1.73 sqM); Sodium 139 mmol/L (137-145); Total Bilirubin 1.1 mg/dL (0.2-1.3)
[2016-05-20] MEDS ORDERED: Potassium Replacement Protocol 1 EACH MISC MISCELLANE PRN (06:21)
[2016-05-20] MEDS ORDERED: Phosphorus Replacement Protoco 1 EACH MISC MISCELLANE PRN (06:27)
[2016-05-20] MEDS: HYDROmorphone 1 MG/ML 1 ML SYRINGE IVP PRN ×3 (06:45→15:18)
[2016-05-20] MEDS: HYDROcodone/APAP 5-325MG 1 EACH TAB PO PRN ×2 (07:58→21:57)
[2016-05-20] MEDS: POTASSIUM CHLORIDE 10 MEQ, LIDOCAINE 2% INJ 10 MG in SODIUM CHLORIDE 0.9% 100 ML IV SCH ×2 (07:58→09:07)
[2016-05-20] MEDS: GABAPENTIN 400 MG CAP PO SCH ×3 (08:01→21:12)
[2016-05-20] MEDS: PANTOPRAZOLE 40 MG/10 ML VIAL IVP SCH (08:01)
[2016-05-20] MEDS: LACTULOSE 20 GM/30 ML CUP PO SCH (08:01)
--- NOTE | 2016-05-20 08:08 | XR ---
EXAMINATION TYPE: XR chest 1V DATE OF EXAM: 05/20/2016 6:25 AM CLINICAL HISTORY: Difficulty breathing progress study. TECHNIQUE: Single AP portable upright view of the chest is obtained. COMPARISON: Chest x-ray from one day earlier FINDINGS: There is elevated left hemidiaphragm with patchy left greater than right bibasilar atelect asis and/or infiltrate redemonstrated stable or slightly more prominent versus prior study. Upper nick gs remain clear without pneumothorax. Cardiac silhouette size is stable and upper limits of normal. O sseous structures are intact. Contrast from recent CT is seen in colon at level of the splenic flexur e. IMPRESSION: Left greater than right bibasilar atelectasis and/or infiltrate stable or slightly worsen ed versus prior.
[2016-05-20] MEDS: MEROPENEM 2 GM in SODIUM CHLORIDE 0.9% 100 ML IVPB SCH ×2 (09:07→16:53)
[2016-05-20] MEDS: DEXTROSE 5% IN WATER 1,000 ML with SODIUM BICARB (1 MEQ/ML) 150 ML IV SCH (09:19)
[2016-05-20] MEDS: POTASSIUM PHOSPHATE 10 MMOL in SODIUM CHLORIDE 0.9% 250 ML IV SCH ×3 (09:59→17:52)
[2016-05-20] MEDS: HEPARIN SODIUM,PORCINE 5,000 UNIT/ML 1 ML VIAL SQ SCH (09:59)
--- NOTE | 2016-05-20 10:09 | P.PN ---
Subjective Principal diagnosis: Alcohol pancreatitis alcohol withdrawal delirium 55-year-old male with long-standing EtOH abuse fifth of whiskey a day admitted with acute alcohol pancreatitis with delirium withdrawal. [place] reticulocyte enzymes improving. Patient is still agitated requesting to be out of bed. CT abdomen and pelvis ultrasound performed yesterday with evidence of moderate ascites and hepatomegaly. Ammonia level 23I improved from yesterday Objective - Vital Signs Vital signs: Vital Signs Temp 98.9 F 05/20/16 08:00 Pulse 96 05/20/16 09:00 Resp 10 L 05/20/16 09:00 BP 152/89 05/20/16 09:00 Pulse Ox 95 05/20/16 09:00 Intake & Output 05/19/16 05/20/16 05/20/16 18:59 06:59 18:59 Intake Total 2950 3000 800 Output Total 1390 725 400 Balance 1560 2275 400 Weight 71.7 kg Intake: Intake, IV Titration 2950 3000 800 Amount 0.9% NaCl with KCl 20 Meq 1500 1800 300 /l 1,000 ml @ 150 mls/hr IV .Q6H45M MARTHA with Mvi, Adult No.4 with Vit K 10 ml with Thiamine 100 mg with Folic Acid 1 mg Rx#: [id number] Dextrose 5% in Water 1, 1200 1200 200 000 ml @ 100 mls/hr IV . [id number] MARTHA with Sodium Bicarb (1 Meq/ml) 150 ml Rx#:[id number] Meropenem 2 gm In Sodium 100 Chloride 0.9% 100 ml @ 200 mls/hr IVPB Q8HR MARTHA Rx#:[id number] Potassium Chloride 10 meq 200 Lidocaine 2% Inj 10 mg In Sodium Chloride 0.9% 100 ml @ 100 mls/hr IV Q1HR MARTHA Rx#:[id number] Sodium Phosphate 10 mmol 250 In Sodium Chloride 0.9% 250 ml @ 125 mls/hr IVPB Q2H MARTHA Rx#:[id number] Output: Urine 1390 725 400 Uretheral (Toney) 250 Other: Voiding Method Urinal Urinal Indwelling Catheter # Bowel Movements 1 - Exam General appearance: The patient is alert, oriented, agitated. HET: Head is normocephalic and atraumatic. Pupils are equal and reactive. Oropharynx is clear without lesions. Neck: Supple without lymphadenopathy. Trachea midline. Heart: S1 S2. Regular rate and rhythm. Lungs: No crackles or wheezes are heard. Abdomen: Soft, distended with mild to moderate ascites bowel sounds. No peritoneal signs. Extremities: Normal skin color and turgor. No cyanosis, rash, ulceration, clubbing, or edema. Radial and pedal pulses are 2/4 bilaterally. Neurological: No focal deficits. Strength and sensation are grossly intact. - Labs CBC & Chem 7: 05/20/16 04:14 05/20/16 04:14 Labs: Abnormal Lab Results - Last 24 Hours (Table) 05/19/16 05/19/16 05/19/16 Range/Units 09:15 10:00 10:00 WBC (3.8-10.6) k/uL RBC (4.30-5.90) m/uL Hgb (13.0-17.5) gm/dL Hct (39.0-53.0) % MCV (80.0-100.0) fL RDW (11.5-15.5) % Plt Count (150-450) k/uL Lymphocytes # (1.0-4.8) k/uL Potassium (3.5-5.1) mmol/L Carbon Dioxide (22-30) mmol/L BUN (9-20) mg/dL Creatinine (0.66-1.25) mg/dL Glucose (74-99) mg/dL POC Glucose (mg/dL) (75-99) mg/dL Calcium (8.4-10.2) mg/dL Phosphorus (2.5-4.5) mg/dL AST (17-59) U/L ALT (21-72) U/L Alkaline Phosphatase (38-126) U/L Ammonia 32 H (<30) umol/L Total Protein (6.3-8.2) g/dL Albumin (3.5-5.0) g/dL Amylase (30-110) U/L Lipase (23-300) U/L Urine Protein 1+ H (Negative) Urine Ketones 4+ H (Negative) Urine Bilirubin 1+ H (Negative) Urine Bacteria Rare H (None) /hpf Urine Mucus Rare H (None) /hpf Urine Opiates Screen Detected H (NotDetected) U Benzodiazepines Scrn Detected H (NotDetected) 05/19/16 05/19/16 05/20/16 Range/Units 12:58 17:56 00:17 WBC (3.8-10.6) k/uL RBC (4.30-5.90) m/uL Hgb (13.0-17.5) gm/dL Hct (39.0-53.0) % MCV (80.0-100.0) fL RDW (11.5-15.5) % Plt Count (150-450) k/uL Lymphocytes # (1.0-4.8) k/uL Potassium (3.5-5.1) mmol/L Carbon Dioxide (22-30) mmol/L BUN (9-20) mg/dL Creatinine (0.66-1.25) mg/dL Glucose (74-99) mg/dL POC Glucose (mg/dL) 163 H 184 H 145 H (75-99) mg/dL Calcium (8.4-10.2) mg/dL Phosphorus (2.5-4.5) mg/dL AST (17-59) U/L ALT (21-72) U/L Alkaline Phosphatase (38-126) U/L Ammonia (<30) umol/L Total Protein (6.3-8.2) g/dL Albumin (3.5-5.0) g/dL Amylase (30-110) U/L Lipase (23-300) U/L Urine Protein (Negative) Urine Ketones (Negative) Urine Bilirubin (Negative) Urine Bacteria (None) /hpf Urine Mucus (None) /hpf Urine Opiates Screen (NotDetected) U Benzodiazepines Scrn (NotDetected) 05/20/16 05/20/16 Range/Units 04:14 04:14 WBC 3.3 L (3.8-10.6) k/uL RBC 3.24 L (4.30-5.90) m/uL Hgb 11.3 L (13.0-17.5) gm/dL Hct 33.9 L (39.0-53.0) % MCV 104.9 H (80.0-100.0) fL RDW 17.7 H (11.5-15.5) % Plt Count 47 L* (150-450) k/uL Lymphocytes # 0.7 L (1.0-4.8) k/uL Potassium 3.0 L* (3.5-5.1) mmol/L Carbon Dioxide 31 H (22-30) mmol/L BUN 3 L (9-20) mg/dL Creatinine 0.50 L (0.66-1.25) mg/dL Glucose 133 H (74-99) mg/dL POC Glucose (mg/dL) (75-99) mg/dL Calcium 7.7 L (8.4-10.2) mg/dL Phosphorus 1.0 L* (2.5-4.5) mg/dL AST 219 H (17-59) U/L ALT 87 H (21-72) U/L Alkaline Phosphatase 148 H (38-126) U/L Ammonia (<30) umol/L Total Protein 5.0 L (6.3-8.2) g/dL Albumin 2.4 L (3.5-5.0) g/dL Amylase <30 L (30-110) U/L Lipase 674 H (23-300) U/L Urine Protein (Negative) Urine Ketones (Negative) Urine Bilirubin (Negative) Urine Bacteria (None) /hpf Urine Mucus (None) /hpf Urine Opiates Screen (NotDetected) U Benzodiazepines Scrn (NotDetected) Microbiology - Last 24 Hours (Table) 05/19/16 16:30 Urine Culture - Preliminary Urine,Catheterized Assessment and Plan (1) Acute alcoholic pancreatitis Status: Acute (2) Alcohol withdrawal delirium Status: Acute (3) Hepatomegaly Status: Acute (4) Ascites due to alcoholic hepatitis Status: Acute Plan: 1. Aggressive IV hydration. 2. Alcohol withdrawal protocol. Clear liquids sparingly. 3. Ultrasound CT abdomen reviewed with evidence of ascites may require paracentesis based on clinical course we'll continue to evaluate. 4. Alcohol abstinence advised and counseled. 5. Repeat liver pancreatic chemistries. 6. GI prophylaxis. Protonix 40 mg IV daily. Assessment and plan a care discussed with Dr. Belle
--- NOTE | 2016-05-20 11:06 | P.PN ---
Subjective Principal diagnosis: acute alcoholic pancreatitis and alcohol withdrawal, delirium this is a 55-year-old white male with history of long-standing history of alcohol abuse, patient drinks a fifth of whiskey on a daily basis, history of nicotine dependence, degenerative disc disease, presented to the ER with acute abdominal pain associated with some nausea vomiting and diarrhea. Patient was initially admitted to the regular medical floor, however the A TEAM was called on the patient at night, were and the patient was getting restless agitated, and an ABG showed significant metabolic acidosis. Hence I recommended transferring the patient to the ICU placed on a sodium bicarb drip, and I was asked to see him on consultation. Patient is not the best historian. His labs clearly revealed evidence of pancreatitis with significantly elevated amylase and lipase. He also had a serum alcohol of 33, bicarb was only 8, and his pH was 7.1. Ammonia level was 32. Patient was reevaluated today on 05/20/2016, he seems to be doing quite well. No major issues overnight. Patient remains calm, remains on the alcohol withdrawal protocol, his lipase is coming down significantly to the range of 600. No nausea no vomiting no abdominal pain and the rest of the labs were all reviewed his bicarb level is basically normal, hence I will go ahead and discontinue bicarb drip.platelets are low hence I will stop his heparin subcu. Potassium is low, being corrected as per protocol.liver enzymes remain elevated. And these will be closely monitored and they would likely improve with time. Patient is doing so well clinically today to the point that I plan to transfer him out of the ICU. Objective - Vital Signs Vital signs: Vital Signs Temp 98.9 F 05/20/16 08:00 Pulse 93 05/20/16 10:00 Resp 05/20/16 10:00 BP 108/74 05/20/16 10:00 Pulse Ox 98 05/20/16 10:00 Intake & Output 05/19/16 05/20/16 05/20/16 18:59 06:59 18:59 Intake Total 2950 3000 1300 Output Total 1390 725 800 Balance 1560 2275 500 Weight 71.7 kg Intake: Intake, IV Titration 2950 3000 1300 Amount 0.9% NaCl with KCl 20 Meq 1500 1800 450 /l 1,000 ml @ 150 mls/hr IV .[id number] MARTHA with Mvi, Adult No.4 with Vit K 10 ml with Thiamine 100 mg with Folic Acid 1 mg Rx#: [id number] Dextrose 5% in Water 1, 1200 1200 300 000 ml @ 100 mls/hr IV . [id number] MARTHA with Sodium Bicarb (1 Meq/ml) 150 ml Rx#:[id number] Meropenem 2 gm In Sodium 100 Chloride 0.9% 100 ml @ 200 mls/hr IVPB Q8HR MARTHA Rx#:[id number] Potassium Chloride 10 meq 200 Lidocaine 2% Inj 10 mg In Sodium Chloride 0.9% 100 ml @ 100 mls/hr IV Q1HR MARTHA Rx#:[id number] Potassium Phosphate 10 250 mmol In Sodium Chloride 0 .9% 250 ml @ 125 mls/hr IV Q2H MARTHA Rx#:[id number] Sodium Phosphate 10 mmol 250 In Sodium Chloride 0.9% 250 ml @ 125 mls/hr IVPB Q2H MARTHA Rx#:[id number] Output: Urine 1390 725 800 Uretheral (Toney) 250 Other: Voiding Method Urinal Urinal Indwelling Catheter # Bowel Movements 1 - Exam Physical Exam: Revealed a 55-year-old in no distress HEENT:[Neck is supple.] [No neck masses.] [No thyromegaly.] [No JVD.] Chest: [Clear throughout, no crackles, no rhonchi, no wheezes.] Cardiac Exam: [Normal S1 and S2, no S3 gallop, no murmur.] Abdomen: [Soft, nontender, no megaly, no rebound, no guarding, normal bowel sounds.] Extremities: [No clubbing, no edema, no cyanosis.] Neurological Exam: [No focal neurologic deficit.] - Labs CBC & Chem 7: 05/20/16 04:14 05/20/16 04:14 Labs: Abnormal Lab Results - Last 24 Hours (Table) 05/19/16 05/19/16 05/19/16 Range/Units 10:00 12:58 17:56 WBC (3.8-10.6) k/uL RBC (4.30-5.90) m/uL Hgb (13.0-17.5) gm/dL Hct (39.0-53.0) % MCV (80.0-100.0) fL RDW (11.5-15.5) % Plt Count (150-450) k/uL Lymphocytes # (1.0-4.8) k/uL Potassium (3.5-5.1) mmol/L Carbon Dioxide (22-30) mmol/L BUN (9-20) mg/dL Creatinine (0.66-1.25) mg/dL Glucose (74-99) mg/dL POC Glucose (mg/dL) 163 H 184 H (75-99) mg/dL Calcium (8.4-10.2) mg/dL Phosphorus (2.5-4.5) mg/dL AST (17-59) U/L ALT (21-72) U/L Alkaline Phosphatase (38-126) U/L Total Protein (6.3-8.2) g/dL Albumin (3.5-5.0) g/dL Amylase (30-110) U/L Lipase (23-300) U/L Urine Opiates Screen Detected H (NotDetected) U Benzodiazepines Scrn Detected H (NotDetected) 05/20/16 05/20/16 05/20/16 Range/Units 00:17 04:14 04:14 WBC 3.3 L (3.8-10.6) k/uL RBC 3.24 L (4.30-5.90) m/uL Hgb 11.3 L (13.0-17.5) gm/dL Hct 33.9 L (39.0-53.0) % MCV 104.9 H (80.0-100.0) fL RDW 17.7 H (11.5-15.5) % Plt Count 47 L* (150-450) k/uL Lymphocytes # 0.7 L (1.0-4.8) k/uL Potassium 3.0 L* (3.5-5.1) mmol/L Carbon Dioxide 31 H (22-30) mmol/L BUN 3 L (9-20) mg/dL Creatinine 0.50 L (0.66-1.25) mg/dL Glucose 133 H (74-99) mg/dL POC Glucose (mg/dL) 145 H (75-99) mg/dL Calcium 7.7 L (8.4-10.2) mg/dL Phosphorus 1.0 L* (2.5-4.5) mg/dL AST 219 H (17-59) U/L ALT 87 H (21-72) U/L Alkaline Phosphatase 148 H (38-126) U/L Total Protein 5.0 L (6.3-8.2) g/dL Albumin 2.4 L (3.5-5.0) g/dL Amylase <30 L (30-110) U/L Lipase 674 H (23-300) U/L Urine Opiates Screen (NotDetected) U Benzodiazepines Scrn (NotDetected) Microbiology - Last 24 Hours (Table) 05/19/16 16:30 Urine Culture - Preliminary Urine,Catheterized Assessment and Plan Plan: impression: 1 acute alcoholic pancreatitis 2 acute alcohol withdrawal and delirium 3 history of chronic pain syndrome 4 history of chronic liver disease 5 history of nicotine dependence Recommendation: considering the patient is doing quite well, and his pancreatitis is improving, his metabolic acidosis is significantly better, I will go ahead and arrange for the patient to be transferred out of the ICU to a regular medical floor. Continue present treatment plan in the meantime, and will follow on an as-needed basis. Time with Patient: Less than 30
[2016-05-20 13:44] LABS: Glucose,Whole Blood 143 mg/dL (75-99)
[2016-05-20] MEDS: SODIUM CHLORIDE 0.9% 1,000 ML IV SCH (14:38)
--- NOTE | 2016-05-20 15:43 | P.GSCN ---
History of Present Illness Consult date: 05/20/16 Reason for Consult: Possible cholecystitis Requesting physician: Ravindra Andrea History of present illness: Patient is a 55-year-old male with medical history significant for alcoholic liver cirrhosis, and pancreatitis. Patient is a current smoker and current EtOH abuser. Patient transferred from [facility] for evaluation of 3-4 day onset of abdominal pain associated with nausea and vomiting, acute alcohol pancreatitis and delay of withdrawal. Ultrasound of abdomen with evidence of hepatomegaly; severe hepatic steatosis; mild gallbladder wall thickening and sludge but no sonographic Alatorre sign, common bile duct mildly dilated. Admission labs with evidence of elevated liver function tests, total bilirubin within normal limits. Lipase elevated suggestive of pancreatitis. Surgical consult for possible cholecystitis. Upon examination, patient complains of epigastric pain radiating to his right side. Patient denies nausea, vomiting, diarrhea or constipation. Patient denies melena, hematemesis, or hematochezia. Past Medical History Past Medical History: Liver Disease Additional Past Medical History / Comment(s): Chronic pain in the right arm, alcoholic, pancreatitis, liver inflammation per pt, DDD, UPPER BRIDGE History of Any Multi-Drug Resistant Organisms: None Reported Additional Past Surgical History / Comment(s): Neck surgery HAS A PLATE, lung surgery D/T INFECTION HAD A CHEST TUBE AFTER SX., Past Anesthesia/Blood Transfusion Reactions: No Reported Reaction Additional Past Anesthesia/Blood Transfusion Reaction / Comm: CLAUSTERPHOBIA Past Psychological History: No Psychological Hx Reported Additional Psychological History / Comment(s): PT STATED HE IS CURRENTLY SEPARATE FROM HIS . LIVES ALONE WITH 1 [employer]DOG. NO HOME CARE SERVICES AND NO HOSITAL EQUIPMENT. PT IS INDEPENDANT. HAS 3 STEPS TO GET INTO HOME. NO SERVICE IN PAST. REITED FROM [facility]. Smoking Status: Current every day smoker Past Alcohol Use History: Abuse, Daily, Heavy Additional Past Alcohol Use History / Comment(s): STARTED SMOKING AT AGE 16 ( 1976) SMOKED 1/2-1 PPD. ADMIKTS TO DRINKING 1/2 TO 1 FITH OF WHISKEY PER DAY Past Drug Use History: Marijuana Additional Drug Use History / Comment(s): HAS'NT USED ANY MARIJUANA IN 2-3 WEEKS. - Past Family History Mother Additional Family Medical History / Comment(s): FROM CYSTIC FIBROSIS Father Family Medical History: No Reported History Additional Family Medical History / Comment(s): FROM "NATURAL CAUSES" Medications and Allergies Home Medications Medication Instructions Recorded Confirmed Type Gabapentin [Neurontin] 400 mg PO TID 05/18/16 05/18/16 History Hydrocodone/Acetaminophen [Recluse 1 tab PO Q6HR PRN 05/18/16 05/18/16 History 7.5-325] traMADol HCL [Ultram] 50 mg PO Q6HR PRN 05/18/16 05/18/16 History Allergies Allergy/AdvReac Type Severity Reaction Status Date / Time No Known Drug Allergies AdvReac Unknown Verified 05/18/16 17:19 Surgical - Exam Vital Signs Temp Pulse Resp BP 97.4 F L 117 H 14 115/74 05/18/16 16:57 05/18/16 16:57 05/18/16 16:57 05/18/16 16:57 GENERAL: Pt awake and alert, sitting up in bed, anxious to leave the intensive care unit. Appears in no acute distress. HEAD: Atraumatic, normocephalic. EYES: Pupils equal and round. Sclera anicteric, conjunctiva are normal. ENT: Moist mucous membranes. NECK:Supple without lymphadenopathy or JVD. LUNGS: Breath sounds clear to auscultation bilaterally. No wheezes, rales, or rhonchi. HEART: Heart S1, S2, no S3 or S4. No murmurs, rubs or gallops. ABDOMEN: Soft, diffuse abdominal tenderness, normoactive bowel sounds, ascites present. No guarding, no rebound. EXTREMITIES: Palpable peripheral pulses. Results - Labs 05/20/16 04:14 05/20/16 04:14 Abnormal Lab Results - Last 24 Hours (Table) 05/19/16 05/19/16 05/20/16 Range/Units 10:00 17:56 00:17 WBC (3.8-10.6) k/uL RBC (4.30-5.90) m/uL Hgb (13.0-17.5) gm/dL Hct (39.0-53.0) % MCV (80.0-100.0) fL RDW (11.5-15.5) % Plt Count (150-450) k/uL Lymphocytes # (1.0-4.8) k/uL Potassium (3.5-5.1) mmol/L Carbon Dioxide (22-30) mmol/L BUN (9-20) mg/dL Creatinine (0.66-1.25) mg/dL Glucose (74-99) mg/dL POC Glucose (mg/dL) 184 H 145 H (75-99) mg/dL Calcium (8.4-10.2) mg/dL Phosphorus (2.5-4.5) mg/dL AST (17-59) U/L ALT (21-72) U/L Alkaline Phosphatase (38-126) U/L Total Protein (6.3-8.2) g/dL Albumin (3.5-5.0) g/dL Amylase (30-110) U/L Lipase (23-300) U/L Urine Opiates Screen Detected H (NotDetected) U Benzodiazepines Scrn Detected H (NotDetected) 05/20/16 05/20/16 05/20/16 Range/Units 04:14 04:14 13:38 WBC 3.3 L (3.8-10.6) k/uL RBC 3.24 L (4.30-5.90) m/uL Hgb 11.3 L (13.0-17.5) gm/dL Hct 33.9 L (39.0-53.0) % MCV 104.9 H (80.0-100.0) fL RDW 17.7 H (11.5-15.5) % Plt Count 47 L* (150-450) k/uL Lymphocytes # 0.7 L (1.0-4.8) k/uL Potassium 3.0 L* (3.5-5.1) mmol/L Carbon Dioxide 31 H (22-30) mmol/L BUN 3 L (9-20) mg/dL Creatinine 0.50 L (0.66-1.25) mg/dL Glucose 133 H (74-99) mg/dL POC Glucose (mg/dL) 143 H (75-99) mg/dL Calcium 7.7 L (8.4-10.2) mg/dL Phosphorus 1.0 L* (2.5-4.5) mg/dL AST 219 H (17-59) U/L ALT 87 H (21-72) U/L Alkaline Phosphatase 148 H (38-126) U/L Total Protein 5.0 L (6.3-8.2) g/dL Albumin 2.4 L (3.5-5.0) g/dL Amylase <30 L (30-110) U/L Lipase 674 H (23-300) U/L Urine Opiates Screen (NotDetected) U Benzodiazepines Scrn (NotDetected) Microbiology - Last 24 Hours (Table) 05/19/16 16:30 Urine Culture - Preliminary Urine,Catheterized Diabetes panel 05/19/16 05/20/16 Range/Units 09:15 04:14 Sodium 139 (137-145) mmol/L Potassium 3.0 L* (3.5-5.1) mmol/L Chloride 102 (98-107) mmol/L Carbon Dioxide 31 H (22-30) mmol/L BUN 3 L (9-20) mg/dL Creatinine 0.50 L (0.66-1.25) mg/dL Glucose 133 H (74-99) mg/dL Hemoglobin A1c 5.4 (4.2-6.1) % Calcium 7.7 L (8.4-10.2) mg/dL AST 219 H (17-59) U/L ALT 87 H (21-72) U/L Alkaline Phosphatase 148 H (38-126) U/L Total Protein 5.0 L (6.3-8.2) g/dL Albumin 2.4 L (3.5-5.0) g/dL Calcium panel 05/20/16 Range/Units 04:14 Calcium 7.7 L (8.4-10.2) mg/dL Phosphorus 1.0 L* (2.5-4.5) mg/dL Albumin 2.4 L (3.5-5.0) g/dL Pituitary panel 05/20/16 Range/Units 04:14 Sodium 139 (137-145) mmol/L Potassium 3.0 L* (3.5-5.1) mmol/L Chloride 102 (98-107) mmol/L Carbon Dioxide 31 H (22-30) mmol/L BUN 3 L (9-20) mg/dL Creatinine 0.50 L (0.66-1.25) mg/dL Glucose 133 H (74-99) mg/dL Calcium 7.7 L (8.4-10.2) mg/dL Adrenal panel 05/20/16 Range/Units 04:14 Sodium 139 (137-145) mmol/L Potassium 3.0 L* (3.5-5.1) mmol/L Chloride 102 (98-107) mmol/L Carbon Dioxide 31 H (22-30) mmol/L BUN 3 L (9-20) mg/dL Creatinine 0.50 L (0.66-1.25) mg/dL Glucose 133 H (74-99) mg/dL Calcium 7.7 L (8.4-10.2) mg/dL Total Bilirubin 1.1 (0.2-1.3) mg/dL AST 219 H (17-59) U/L ALT 87 H (21-72) U/L Alkaline Phosphatase 148 H (38-126) U/L Total Protein 5.0 L (6.3-8.2) g/dL Albumin 2.4 L (3.5-5.0) g/dL - Imaging CT scan - abdomen: report reviewed CT scan - pelvis: report reviewed US - abdomen: report reviewed Assessment and Plan Plan: Impression: 1. Acute abdominal pain suspect secondary to acute alcoholic pancreatitis and possible gastritis. 2. Mild gallbladder wall thickening and sludge with negative Alatorre sign suggestive of possible cholecystitis. Plan: 1. Continue clear liquid diet until abdominal pain has improved. Continue PPI. Continue IV hydration. Continue supportive treatment and pain management. No plans for surgical intervention at this time. Patient will follow-up with Dr. Simon in the outpatient setting for workup of gallbladder. The above impression and plan have been discussed and directed by Dr. Pal. Faiza DHALIWAL acting as scribe for Dr. Simon.
[2016-05-20] MEDS: THIAMINE 100 MG TAB PO SCH ×2 (15:48→18:14)
[2016-05-20 17:44] LABS: Glucose,Whole Blood 170 mg/dL (75-99)
[2016-05-20] MEDS: NICOTINE 21MG/24HR PATCH TRANSDERM SCH (19:52)
[2016-05-20] MEDS: ONDANSETRON 4 MG/2 ML VIAL IVP PRN (19:56)
--- NOTE | 2016-05-20 20:04 | PN ---
DATE OF SERVICE: 05/20/2016 This 55-year-old gentleman who was admitted with multiple medical problems, including severe pancreatitis, also had severe metabolic acidosis and early sepsis. The patient is being evaluated by Surgery. Also abdominal and pelvis CT scan was noted which showed moderate ascites and fatty infiltration; bibasilar infiltrates also noted. Pulmonary is following the patient closely as well. Mild gallbladder sludge was also noted. Patient is on empiric antibiotics. Multiple consultants are following the patient closely. Past medical history reviewed. REVIEW OF SYSTEMS: CARDIOVASCULAR SYSTEM: No angina, palpitations. RESPIRATORY SYSTEM: As mentioned earlier. GI: As mentioned earlier. : No dysuria, retention. NERVOUS SYSTEM: Diffusely weak. Current medications are reviewed and include: 1. [place] 5 mg q.6 p.r.n. 2. Valium 5 mg q.4. 3. Neurontin 400 mg t.i.d. 4. Haldol 0.5 mg q.i.d. p.r.n. 5. Dilaudid. 6. Humalog. 7. Omnipaque. 8. Ativan. 9. Meropenem 2 grams IV q.8. 10. Replacement protocol. 11. Zofran. 12. Protonix 40 mg IV daily. 13. Vitamin B1 100 mg p.o. daily. 14. Ultram 50 mg q.6 p.r.n. PHYSICAL EXAMINATION: Patient is alert and oriented x3. Pulse 93, blood pressure 108/74, respiration 17, temperature 98.1, pulse ox 98% on 2 L. HEENT: Conjunctivae normal. Oral mucosa moist. NECK: No jugular venous distention. No carotid bruit. No lymph node enlargement. CARDIOVASCULAR: S1, S2 muffled. No S3. No S4. RESPIRATORY SYSTEM: Breath sounds diminished at the bases. A few scattered rhonchi and crackles. ABDOMEN: Soft. Diffuse ascites present. Mild diffuse tenderness also present. LEGS: No edema. No swelling. NERVOUS SYSTEM: No focal deficit. LABS: WBC 3.3, hemoglobin 11.3, platelets 47. Sodium 139, potassium ntd phosphorus is 1. AST is 219. ALT is 87. Lipase is 674. ASSESSMENT: 1. Acute severe pancreatitis with severe abdominal pain, present on admission. 2. Severe metabolic acidosis with possible early sepsis. 3. Acute delirium tremens. 4. Rule out acute cholecystitis. 5. Ascites in the abdominal cavity. 6. Ethanol withdrawal. 7. History of alcoholic pancreatitis. 8. Chronic pain syndrome. 9. History of chronic liver disease. 10. History of significant ethanol. 11. Claustrophobia history per chart. 12. History of nicotine dependence. 13. History of tetrahydrocannabinol. 14. Hypoalbuminemia with mild to moderate protein-calorie malnutrition. 15. Thrombocytopenia. 16. FULL CODE. RECOMMENDATIONS AND DISCUSSION: In this 55-year-old gentleman who presented with multiple complex medical issues, we will monitor the patient closely, continue the current medications, continue symptomatic treatment. Otherwise, at this time I would recommend continuing the broad-spectrum IV antibiotics. Continue with the rest of the medications. CIWA protocol. Multivitamin supplements. Banana bag. Otherwise, surgical evaluation. Follow closely with Dr. Sargent for ICU management. Guarded prognosis because of multiple complex medical issues. Further recommendations to follow. MTDD
[2016-05-20 23:05] LABS: Glucose,Whole Blood 106 mg/dL (75-99)
[2016-05-21] MEDS: 0.9% NACL WITH KCL 20 MEQ/L 1,000 ML with MVI, ADULT NO.4 WITH VIT K 10 ML, THIAMINE 10... IV SCH ×12 (00:02→08:48)
[2016-05-21] MEDS: MEROPENEM 2 GM in SODIUM CHLORIDE 0.9% 100 ML IVPB SCH ×3 (00:02→15:29)
[2016-05-21] MEDS: DIAZEPAM 5 MG/ML 2 ML SYRINGE IVP PRN (00:20)
[2016-05-21] MEDS: HYDROcodone/APAP 5-325MG 1 EACH TAB PO PRN ×4 (04:56→21:56)
[2016-05-21] MEDS: SODIUM CHLORIDE 0.9% 1,000 ML IV SCH ×3 (07:34→21:56)
[2016-05-21 07:38] LABS: Anisocytosis Slight; Basophils % (A) 1 %; CH 33.8; CHCM 32.4; Eosinophils # (A) 0.1 k/uL (0-0.7); Eosinophils % (A) 2 %; HCT 36.2 % (39.0-53.0); HDW 2.56; HGB 11.6 gm/dL (13.0-17.5); Luc # (Auto) 0.05; Luc % (Auto) 2; Lymphocytes # (A) 0.8 k/uL (1.0-4.8); Lymphocytes % (A) 31 %; MCH 33.6 pg (25.0-35.0); MCHC 32.2 g/dL (31.0-37.0); MCV 104.3 fL (80.0-100.0); Macrocytosis Moderate; Mean Platelet Volume 9.2; Monocytes # (A) 0.1 k/uL (0-1.0); Monocytes % (A) 4 %; Neutrophils # (A) 1.5 k/uL (1.3-7.7); Neutrophils % (A) 61 %; RBC 3.47 m/uL (4.30-5.90); RDW 17.8 % (11.5-15.5); WBC 2.5 k/uL (3.8-10.6); WBC (Perox) 2.72
[2016-05-21 07:39] LABS: Glucose,Whole Blood 115 mg/dL (75-99)
--- NOTE | 2016-05-21 07:50 | XR ---
EXAMINATION TYPE: XR chest 1V DATE OF EXAM: 05/21/2016 7:13 AM HISTORY: shortness of breath. REFERENCE: Previous study dated 05/20/2016. FINDINGS: There are bilateral effusions, greater on the left than the right. The heart is upper limit s of normal in size. There is left basilar atelectasis. IMPRESSION: 1. BORDERLINE CARDIOMEGALY. 2. BILATERAL EFFUSIONS, GREATER ON THE LEFT THAN THE RIGHT. 3. LEFT BASILAR ATELECTASIS.
[2016-05-21] MEDS: INSULIN LISPRO (humaLOG) 300 UNIT/3 ML VIAL SQ SCH ×4 (07:52→21:51)
[2016-05-21] MEDS: NICOTINE 21MG/24HR PATCH TRANSDERM SCH (07:55)
[2016-05-21] MEDS: PANTOPRAZOLE 40 MG/10 ML VIAL IVP SCH (07:55)
[2016-05-21] MEDS: LACTULOSE 20 GM/30 ML CUP PO SCH (07:55)
[2016-05-21 07:56] LABS: ALT 85 U/L (21-72); AST 171 U/L (17-59); Alkaline Phosphatase 155 U/L (38-126); Amylase <30 U/L (30-110); Anion Gap 8 mmol/L; Blood Urea Nitrogen <2 mg/dL (9-20); Calcium 7.9 mg/dL (8.4-10.2); Carbon Dioxide 29 mmol/L (22-30); Chloride 103 mmol/L (98-107); Glucose 125 mg/dL (74-99); Magnesium 1.4 mg/dL (1.6-2.3); Non-African American GFR(MDRD) >60 (>60 ml/min/1.73 sqM); Phosphorous 1.7 mg/dL (2.5-4.5); Potassium 3.3 mmol/L (3.5-5.1); Sodium 140 mmol/L (137-145); Total Bilirubin 0.9 mg/dL (0.2-1.3); Total Protein 5.2 g/dL (6.3-8.2)
[2016-05-21] MEDS: GABAPENTIN 400 MG CAP PO SCH ×3 (08:48→21:52)
[2016-05-21] MEDS: LORazepam 2 MG/ML SYRINGE IV PRN ×2 (08:55→19:27)
[2016-05-21 11:27] LABS: Glucose,Whole Blood 159 mg/dL (75-99)
[2016-05-21] MEDS: THIAMINE 100 MG TAB PO SCH (11:35)
--- NOTE | 2016-05-21 11:57 | PN ---
Requesting physician: Dr. Kosta Da Silva. Patient is a 55-year-old pleasant white male admitted to the hospital with a history of heavy alcoholism, admitted to the hospital with acute pancreatitis. Patient has been complaining of severe epigastric pain and while in the hospital has been going through DTs. This morning he is somewhat shaky but he is looking much better. He says he is feeling much better. He has some abdominal discomfort, but no nausea or vomiting. He is on clear liquid diet, tolerating well. On physical examination, he appears comfortable in no apparent distress. Vitals as are stable. Blood pressure is 145/84, pulse rate 101, temperature 98. HEENT: Unremarkable. Conjunctivae pink. Sclerae anicteric. Oral cavity, no lesions. NECK: No JVD or lymph node enlargement. Chest was clear to auscultation. HEART: Regular rate and rhythm. ABDOMEN: Soft. It was slightly distended. There was some tenderness in the epigastric area. Bowel sounds are positive. Extremities tremors noted. Neurological: Alert and oriented x3. No focal deficits. Labs from today, WBC 2.5, hemoglobin 11.6. Platelets are 63,000, AST is 171. ALT is 85, T-bili 0.9 alkaline phosphatase 155, amylase less than 30. Lipase is still pending. IMPRESSION: 1. Acute alcoholic related pancreatitis, gradually improving. 2. Delirium tremens, resolving. 3. Elevated serum transaminases suggestive of acute alcoholic pancreatitis superimposed on cirrhosis of the liver as noticed by thrombocytopenia. Recent CAT scan did show evidence of ascites, probably related to portal hypertension RECOMMENDATIONS: 1. Continue with symptomatic and supportive care. 2. Agree with clear liquid diet and slowly advance diet as tolerated to a low fat diet. 3. Had a lengthy discussion with patient regarding importance of abstinence from alcohol. 4. Continue with proton pump inhibitors. 5. Once pancreatitis improves, I will consider starting him on diuretics as management of ascites. Will follow him closely during his hospital stay. Thank you for this consultation.
--- NOTE | 2016-05-21 15:12 | P.PN ---
Progress Note - Text Patient is stable. However has no appetite. States he cannot keep any food down. Abdominal pain is fairly stable. Was admitted with acute pancreatitis ethanol related. Has evidence of the hip cirrhosis of the liver with ascites and hepatomegaly. Question of sludge in the gallbladder with edema of the wall probably secondary to the ascites. On examination the patient is a awake alert. Hydration satisfactory. Vitals are stable. Abdomen is mild to moderately distended from ascites. Mild diffuse tenderness in the upper abdomen mostly in the epigastric area. No masses are palpable. No organomegaly [place] and lipase were down to normal. WBC is normal. Impression resolving acute pancreatitis probably secondary to ethanol abuse. Ascites also the cirrhosis probably secondary to ethanol abuse. Recommendation continued medical management of symptomatic treatment. Nothing surgical to offer at this time.
[2016-05-21 17:40] LABS: Glucose,Whole Blood 119 mg/dL (75-99)
[2016-05-21 17:43] LABS: Glucose,Whole Blood 173 mg/dL (75-99)
[2016-05-21 21:53] LABS: Glucose,Whole Blood 103 mg/dL (75-99)
[2016-05-22] MEDS: MEROPENEM 2 GM in SODIUM CHLORIDE 0.9% 100 ML IVPB SCH ×3 (00:13→16:57)
[2016-05-22] MEDS: SODIUM CHLORIDE 0.9% 1,000 ML IV SCH ×3 (03:12→22:32)
[2016-05-22] MEDS: traMADol 50 MG TAB PO PRN ×2 (03:16→20:41)
[2016-05-22] MEDS: GABAPENTIN 400 MG CAP PO SCH ×3 (06:32→22:32)
[2016-05-22] MEDS: HYDROcodone/APAP 5-325MG 1 EACH TAB PO PRN ×3 (06:32→18:38)
[2016-05-22 07:59] LABS: Glucose,Whole Blood 107 mg/dL (75-99)
[2016-05-22 08:09] LABS: Anisocytosis Slight; Basophils % (A) 1 %; CH 33.9; CHCM 32.5; Eosinophils # (A) 0.1 k/uL (0-0.7); Eosinophils % (A) 3 %; HCT 35.1 % (39.0-53.0); HDW 2.53; HGB 11.5 gm/dL (13.0-17.5); Luc # (Auto) 0.09; Luc % (Auto) 3; Lymphocytes # (A) 0.6 k/uL (1.0-4.8); Lymphocytes % (A) 22 %; MCH 34.2 pg (25.0-35.0); MCHC 32.7 g/dL (31.0-37.0); MCV 104.5 fL (80.0-100.0); Macrocytosis Moderate; Mean Platelet Volume 9.3; Monocytes # (A) 0.2 k/uL (0-1.0); Monocytes % (A) 7 %; Neutrophils # (A) 1.8 k/uL (1.3-7.7); Neutrophils % (A) 66 %; RBC 3.36 m/uL (4.30-5.90); WBC 2.7 k/uL (3.8-10.6); WBC (Perox) 2.87
[2016-05-22 08:16] LABS: ALT 89 U/L (21-72); AST 162 U/L (17-59); Alkaline Phosphatase 168 U/L (38-126); Amylase <30 U/L (30-110); Anion Gap 7 mmol/L; Blood Urea Nitrogen 2 mg/dL (9-20); Calcium 8.2 mg/dL (8.4-10.2); Carbon Dioxide 27 mmol/L (22-30); Chloride 104 mmol/L (98-107); Glucose 107 mg/dL (74-99); Magnesium 1.3 mg/dL (1.6-2.3); Non-African American GFR(MDRD) >60 (>60 ml/min/1.73 sqM); Potassium 3.7 mmol/L (3.5-5.1); Sodium 138 mmol/L (137-145); Total Bilirubin 0.7 mg/dL (0.2-1.3); Total Protein 5.3 g/dL (6.3-8.2)
[2016-05-22] MEDS: INSULIN LISPRO (humaLOG) 300 UNIT/3 ML VIAL SQ SCH ×4 (08:20→20:41)
[2016-05-22] MEDS: LACTULOSE 20 GM/30 ML CUP PO SCH (09:05)
[2016-05-22] MEDS: NICOTINE 21MG/24HR PATCH TRANSDERM SCH (09:07)
[2016-05-22] MEDS ORDERED: SPIRONOLACTONE 25 MG TAB PO STA (09:39)
[2016-05-22] MEDS: PANTOPRAZOLE 40 MG/10 ML VIAL IVP SCH (09:46)
--- NOTE | 2016-05-22 10:27 | P.PN ---
Progress Note - Text Patient is fairly stable. Continues to complain of abdominal pain especially at night. He is on multiple pain medications. Once to try to eat a little better food rather than clear liquids. No nausea or vomiting. On examination the patient is awake alert in no distress resting comfortably at this time. Abdomen is rather distended from ascites with minimal tenderness however. No mass or organomegaly. Impression resolving pancreatitis ethanol related with cirrhosis and ascites. Recommendation we will increase his diet to full liquid. Continued medical management.
[2016-05-22 11:14] LABS: Glucose,Whole Blood 106 mg/dL (75-99)
--- NOTE | 2016-05-22 11:18 | PN ---
DATE OF SERVICE: 05/21/2016 This 55-year-old gentleman who was admitted with acute history of pancreatitis, also had severe metabolic acidosis and possible early sepsis, present on admission. Also had delirium tremens. The patient was also seen by Dr. Belle with Dr. Luevano today. The patient also had ascites possibly related to portal hypertension, chronic liver disease as well. Amylase today less than 30, lipase is 500. LFTs are still elevated. As mentioned earlier, the abdomen and pelvis CT scan showed moderate ascites, fatty infiltration of the liver, bilateral small pleural effusions, and some infiltrates and atelectasis also. No chest pain. No palpitation. No fever. PAST MEDICAL HISTORY: Reviewed. REVIEW OF SYSTEMS: CARDIOVASCULAR: No angina or palpitations. GI: As mentioned. No nausea. : As mentioned. MEDICATIONS: 1. [place] 5 mg every 6 p.r.n. 2. Valium 5 mg every 4 p.r.n. 3. Neurontin 400 mg daily. 4. Haldol 5 mg p.o. daily. 6. Humalog. 7. Cephulac 20 grams p.o. daily. 8. Ativan 1 mg CIWA protocol. 10. Replacement protocol. 11. Habitrol 21. 12. Zofran. 13. Protonix. 14. IV fluids. PHYSICAL EXAMINATION: GENERAL: At this time the patient is alert, oriented x2. Pulse 98, blood pressure 142/84, respirations 18, temperature 98.6, pulse ox 97% on room air. HEENT: Conjunctivae normal. Oral mucosa moist. NECK: No JVD, no carotid bruit. No lymph node enlargement. CARDIOVASCULAR: S1 and S2 muffled. No S3, no S4. RESPIRATORY: Breath sounds diminished at the bases. Bilateral scattered rhonchi and crackles. ABDOMEN: Soft, obese, ascites present. EXTREMITIES: Legs, no edema. No swelling. NERVOUS SYSTEM: Diffusely weak. Lab investigations at this time show WBC 2.5, hemoglobin 11.6. Platelets are 63 and potassium 3.6. Accu-Cheks noted. Magnesium 1.4. ASSESSMENT: 1. Acute severe pancreatitis with severe abdominal pain present on admission. 2. Severe metabolic acidosis with possible early sepsis, present on admission. 3. Acute delirium tremens. 4. Rule out acute cholecystitis. 5. Ascites in the abdominal cavity on CT scan. 6. EtOH withdrawal. 7. History of alcoholic pancreatitis. 8. Chronic liver disease and possible cirrhosis of the liver. 9. Chronic pain syndrome. 10. History of significant EtOH. 11. Claustrophobia history per chart. 12. History of nicotine dependence. 13. History of THC. 14. Hypoalbuminemia with mild to moderate protein calorie malnutrition. 15. Thrombocytopenia. 16. Hypomagnesemia. 17. Hypokalemia. RECOMMENDATIONS AND DISCUSSION: In this 55-year-old gentleman who presented with multiple complex medical issues, we will monitor the patient closely. Continue the current medications. Continue symptomatic treatment. Repeat labs, repeat magnesium tomorrow. Otherwise, closely follow with pulmonary and gastroenterology. Overall prognosis guarded. Further recommendations to follow. Discussed with the patient who understands and agrees. Monitor electrolytes closely. I would also recommend alcohol rehab. The patient has significant pancytopenia possibly related to alcohol toxicity, exact etiology unknown at this time. I would recommend close follow-up in the outpatient setting also. Further recommendations to follow. MTDD
--- NOTE | 2016-05-22 12:55 | PN ---
DATE OF SERVICE: 05/22/2016 Requesting physician: Dr. Kosta Da Silva. The patient is a 55 -year-old white male admitted to the hospital with acute alcoholic pancreatitis and presents with abdominal pain, nausea and vomiting. He is feeling much better. The abdominal pain is gradually improving. He does complain of abdominal distention, and abdominal bloating for the last 2 days' duration. He recently had a CT of the abdomen and pelvis done that showed moderate amount of ascites, probably related to underlying liver disease. He is presently on a liquid diet, tolerating well and is requesting for more advance diet. On physical examination, he appears comfortable in no apparent distress. Vital signs are stable. Blood pressure is 142/84, pulse rate 90, temperature 97. HEENT: Unremarkable. Conjunctivae pink. Sclerae anicteric. Oral cavity, no lesions. NECK: No JVD or lymph node enlargement. Chest was clear to auscultation. HEART: Regular rate and rhythm. ABDOMEN: Distended. There was significant amount of free fluid noted in the abdomen. There was slight tenderness in the epigastric area. EXTREMITIES: No pedal edema. SKIN: No rashes. NEURO: He is alert and oriented x3. No focal deficits. Labs from today: Amylase is down to 30, lipase is 439, AST is down to 162, ALT 89, alkaline phosphatase 168, bilirubin is 0.7. IMPRESSION: 1. Acute alcoholic pancreatitis, gradually resolving. 2. Acute alcoholic hepatitis. 3. Cirrhosis with underlying portal hypertension and ascites. 4. Mild pancytopenia related to hypersplenism from portal hypertension/cirrhosis of the liver. RECOMMENDATIONS: 1. Advance to soft diet. 2. DC IV fluids because of ascites. 3. We will start him on Lasix 40 mg daily and Aldactone 50 mg daily. 4. Repeat labs in the morning and we will follow him closely during his hospital stay.
[2016-05-22 17:27] LABS: Glucose,Whole Blood 103 mg/dL (75-99)
[2016-05-22 20:38] LABS: Glucose,Whole Blood 136 mg/dL (75-99)
[2016-05-23] MEDS: MEROPENEM 2 GM in SODIUM CHLORIDE 0.9% 100 ML IVPB SCH ×2 (00:03→08:47)
[2016-05-23] MEDS: HYDROcodone/APAP 5-325MG 1 EACH TAB PO PRN ×3 (00:06→12:22)
[2016-05-23 07:13] LABS: Glucose,Whole Blood 135 mg/dL (75-99)
[2016-05-23 07:46] VITALS: BP 130/75; PULSE 83; RESP 20; TEMP 98.4
[2016-05-23] MEDS: INSULIN LISPRO (humaLOG) 300 UNIT/3 ML VIAL SQ SCH ×2 (08:48→12:25)
[2016-05-23] MEDS: LACTULOSE 20 GM/30 ML CUP PO SCH (08:48)
[2016-05-23] MEDS: NICOTINE 21MG/24HR PATCH TRANSDERM SCH (08:48)
[2016-05-23] MEDS: GABAPENTIN 400 MG CAP PO SCH (08:48)
[2016-05-23] MEDS: PANTOPRAZOLE 40 MG/10 ML VIAL IVP SCH (08:49)
[2016-05-23 08:53] LABS: ALT 85 U/L (21-72); AST 111 U/L (17-59); Alkaline Phosphatase 163 U/L (38-126); Amylase <30 U/L (30-110); Anion Gap 5 mmol/L; Blood Urea Nitrogen 5 mg/dL (9-20); Calcium 8.8 mg/dL (8.4-10.2); Carbon Dioxide 29 mmol/L (22-30); Chloride 102 mmol/L (98-107); Glucose 125 mg/dL (74-99); Magnesium 1.5 mg/dL (1.6-2.3); Non-African American GFR(MDRD) >60 (>60 ml/min/1.73 sqM); Phosphorous 2.9 mg/dL (2.5-4.5); Potassium 3.6 mmol/L (3.5-5.1); Sodium 136 mmol/L (137-145); Total Bilirubin 0.6 mg/dL (0.2-1.3); Total Protein 5.4 g/dL (6.3-8.2)
[2016-05-23 08:54] LABS: Anisocytosis Slight; Basophils % (A) 1 %; CH 33.9; CHCM 32.8; Eosinophils # (A) 0.1 k/uL (0-0.7); Eosinophils % (A) 3 %; HCT 35.3 % (39.0-53.0); HDW 2.48; HGB 11.8 gm/dL (13.0-17.5); Luc % (Auto) 4; Lymphocytes # (A) 0.7 k/uL (1.0-4.8); Lymphocytes % (A) 23 %; MCH 34.6 pg (25.0-35.0); MCHC 33.4 g/dL (31.0-37.0); MCV 103.5 fL (80.0-100.0); Macrocytosis Moderate; Mean Platelet Volume 9.3; Monocytes # (A) 0.2 k/uL (0-1.0); Monocytes % (A) 9 %; Neutrophils # (A) 1.7 k/uL (1.3-7.7); Neutrophils % (A) 61 %; RBC 3.41 m/uL (4.30-5.90); RDW 18.2 % (11.5-15.5); WBC 2.8 k/uL (3.8-10.6); WBC (Perox) 2.95
[2016-05-23] MEDS ORDERED: FUROSEMIDE 40 MG TAB PO SCH (09:00)
[2016-05-23] MEDS ORDERED: POTASSIUM CHLORIDE ER 20 MEQ TAB.ER PO STA (10:19)
[2016-05-23 11:07] VITALS: BMI 26.3
[2016-05-23 11:10] LABS: Glucose,Whole Blood 88 mg/dL (75-99)
[2016-05-23] MEDS: MAGNESIUM SULFATE-D5W PMX 1 GM in DEXTROSE/WATER 1 100ML.BAG IVPB SCH ×2 (11:15→12:22)
--- NOTE | 2016-05-23 11:22 | PN ---
DATE OF SERVICE: 05/22/2016 This 55-year-old gentleman was admitted with acute severe pancreatitis and abdominal pain, also had multiple medical problems including possible sepsis also present on admission. The patient is much more alert at this time. Multiple consultants are following the patient including Surgery as well as Gastroenterology. The pain is slowly improving. Diet is also being advanced by Dr. Belle. On exam, alert, oriented x2. Pulse 93, blood pressure 137/60, respirations, temperature 98.4, pulse ox 94% on room air. HEENT: Conjunctivae normal. Oral mucosa moist. NECK: No JVD. No carotid bruits. No lymph node enlargement. CARDIOVASCULAR: S1 and muffled. LUNGS: Breath sounds diminished at the bases. A ABDOMEN: Soft, mild diffuse distention and ascites present. Mild diffuse tenderness also present. No guarding or rigidity. No masses palpable. Bowel sounds present. EXTREMITIES: No edema. NERVOUS SYSTEM: No focal deficits. LABS: WBC 2.0, hemoglobin 11.5, MCV 104, AST 162, ALT 89, amylase less than 30, lipase 439. ASSESSMENT: 1. Acute severe pancreatitis with severe abdominal pain present on admission. 2. Severe metabolic acidosis, possibly sepsis, present on admission. 3. Rule out acute cholecystitis. 4. Ascites in the abdomen cavity on CT scan, possibly secondary to cirrhosis of the liver. 5. EtOH withdrawal and acute delirium tremens. 6. History of alcoholic pancreatitis. 7. Chronic liver disease and possible cirrhosis of the liver. 8. Chronic pain syndrome. 9. History of significant ethanol. 10. Claustrophobia history per chart. 11. History of nicotine dependence. 12. History of THC. 13. Hypoalbuminemia with mild to moderate protein calorie malnutrition. 14. Thrombocytopenia. 15. Hypomagnesemia. 16. Hypokalemia. 17. FULL CODE. RECOMMENDATIONS AND DISCUSSION: In this 55-year-old gentleman who presented with multiple complex medical issues, continue current medications, continue symptomatic treatment, continue with CIWA protocol. Continue with the broad-spectrum IV antibiotics. Nicotine cessation. Supplement vitamins. Repeat labs have been ordered. Closely follow with multiple consultants. Guarded prognosis because of the multiple complex medical issues. Further recommendations to follow. Prognosis is guarded. Discussed with the patient.
--- NOTE | 2016-05-23 12:26 | P.PN ---
Subjective Patient is a 55-year-old male admitted with acute alcohol related pancreatitis, liver cirrhosis with ascites, and hepatomegaly. Patient is evaluated on the medical floor, where he is laying in bed. Patient reports improvement in epigastric pain but states he still hurts mostly in his right upper quadrant. Patient rates pain 6 out of 10 at rest. Patient denies nausea , vomiting, shortness of breath, or chest pain. Patient is urinating without difficulty. Patient had a bowel movement this morning. Patient is tolerating a soft diet. Afebrile. Patient with evidence of pancytopenia. Liver and pancreatic enzymes improving. Objective - Vital Signs Vital signs: Vital Signs Temp 98.4 F 05/23/16 07:00 Pulse 83 05/23/16 07:00 Resp 20 05/23/16 07:00 BP 130/75 05/23/16 07:00 Pulse Ox 93 L 05/23/16 07:00 Intake & Output 05/22/16 05/23/16 05/23/16 18:59 06:59 18:59 Intake Total 200 240 Balance 200 240 Weight 71.7 kg Intake: IV 200 Sodium Chloride 0.9% 1, 200 000 ml @ 100 mls/hr IV . Q10H MARTHA Rx#:[id number] Oral 240 Other: Voiding Method Toilet Toilet Toilet # Voids 3 1 - Exam GENERAL: Pt awake and alert, sitting up in bed, in no acute distress. HEAD: Atraumatic, normocephalic. EYES: Pupils equal and round. Sclera anicteric, conjunctiva are normal. ENT: Moist mucous membranes. NECK:Supple without lymphadenopathy or JVD. LUNGS: Breath sounds clear to auscultation bilaterally. No wheezes, rales, or rhonchi. HEART: Heart S1, S2, no S3 or S4. Regular rate and rhythm. No murmurs, rubs or gallops. ABDOMEN: Soft, mild abdominal tenderness, normoactive bowel sounds, ascites present. No guarding, no rebound. EXTREMITIES: Palpable peripheral pulses. - Labs CBC & Chem 7: 05/23/16 07:51 05/23/16 07:51 Labs: Abnormal Lab Results - Last 24 Hours (Table) 05/22/16 05/22/16 05/23/16 Range/Units 17:16 20:37 06:53 WBC (3.8-10.6) k/uL RBC (4.30-5.90) m/uL Hgb (13.0-17.5) gm/dL Hct (39.0-53.0) % MCV (80.0-100.0) fL RDW (11.5-15.5) % Plt Count (150-450) k/uL Lymphocytes # (1.0-4.8) k/uL Sodium (137-145) mmol/L BUN (9-20) mg/dL Creatinine (0.66-1.25) mg/dL Glucose (74-99) mg/dL POC Glucose (mg/dL) 103 H 136 H 135 H (75-99) mg/dL Magnesium (1.6-2.3) mg/dL AST (17-59) U/L ALT (21-72) U/L Alkaline Phosphatase (38-126) U/L Total Protein (6.3-8.2) g/dL Albumin (3.5-5.0) g/dL Amylase (30-110) U/L Lipase (23-300) U/L 05/23/16 05/23/16 Range/Units 07:51 07:51 WBC 2.8 L (3.8-10.6) k/uL RBC 3.41 L (4.30-5.90) m/uL Hgb 11.8 L (13.0-17.5) gm/dL Hct 35.3 L (39.0-53.0) % MCV 103.5 H (80.0-100.0) fL RDW 18.2 H (11.5-15.5) % Plt Count 113 L (150-450) k/uL Lymphocytes # 0.7 L (1.0-4.8) k/uL Sodium 136 L (137-145) mmol/L BUN 5 L (9-20) mg/dL Creatinine 0.51 L (0.66-1.25) mg/dL Glucose 125 H (74-99) mg/dL POC Glucose (mg/dL) (75-99) mg/dL Magnesium 1.5 L (1.6-2.3) mg/dL AST 111 H (17-59) U/L ALT 85 H (21-72) U/L Alkaline Phosphatase 163 H (38-126) U/L Total Protein 5.4 L (6.3-8.2) g/dL Albumin 2.6 L (3.5-5.0) g/dL Amylase <30 L (30-110) U/L Lipase 462 H (23-300) U/L Microbiology - Last 24 Hours (Table) 05/19/16 17:37 Blood Culture - Preliminary Blood No Growth after 72 hours Assessment and Plan Plan: Impression: 1. Acute alcoholic pancreatitis. 2. Mild gallbladder wall thickening and sludge with negative Alatorre sign suggestive of possible cholecystitis. 3. Liver cirrhosis with ascites. Plan: 1. Continue soft diet. Continue supportive treatment and pain management. No plans for surgical intervention at this time. Continue medical management. Patient will follow-up with Dr. Simon in the outpatient setting. The above impression and plan have been discussed and directed by Dr. Pal. Faiza DHALIWAL acting as scribe for Dr. Simon.
--- NOTE | 2016-05-24 11:53 | DS ---
DATE OF ADMISSION: 05/18/2016 DATE OF DISCHARGE: 05/23/2016 FINAL DIAGNOSES: 1. Acute severe pancreatitis and severe abdominal pain present on admission with severe metabolic acidosis, with possible sepsis, present on admission improved. 2. Mild gallbladder wall thickening and sludge and with a negative Alatorre's sign, cholecystitis unlikely per surgery. 3. Ascites in the abdomen cavity on CT scan possibly secondary to cirrhosis of the liver. 4. ETOH withdrawal and acute delirium tremens. 5. History of alcoholic pancreatitis. 6. Chronic liver disease and possible cirrhosis of the liver. 7. Chronic pain syndrome. 8. History significant ETOH. 9. Claustrophobia history per chart. 10. History of nicotine dependence. 11. History of THC. 12. Hypoalbuminemia with mild to moderate protein calorie malnutrition. 13. Thrombocytopenia. 14. Hypomagnesemia. 15. Hypokalemia. 16. FULL CODE. The patient will be discharged in a stable condition with guarded prognosis. Total time taken 35 minutes. HISTORY OF PRESENT ILLNESS: This 55-year-old gentleman with a past medical history of multiple medical problems admitted with features of significant acute severe pancreatitis, metabolic acidosis, multiple other complex medical issues and complications. The patient was treated symptomatically and improved significantly. The patient seen in conjunction with Dr. Sargent, surgery and as well as Dr. Belle. Care was coordinated. On exam, vitals are stable. CARDIOVASCULAR SYSTEM: S1, S2 muffled. ABDOMEN: Soft, ascites present. Legs: No edema. No swelling. CENTRAL NERVOUS SYSTEM: No focal deficits. LABS: WBC is 2.5, hemoglobin 11, platelets 113. Recommend to avoid alcohol. The patient understands and agrees. DISCHARGE ADVICE AND MEDICATIONS: 1. Diet is cardiac. 2. Activity limited until follow up. 3. Follow-up with Dr. Kosta Da Silva in [place] in 2 to 3 days with labs. 4. Follow up with Dr. Belle as recommended. 5. Attend AA meetings and rehab as recommended. 6. Folic acid 1 mg daily. 7. Lasix 40 mg p.o. daily. 8. Neurontin 400 mg p.o. t.i.d. 9. Hydrocodone 1 tablet q.6 p.r.n. 10. Ativan 1 mg t.i.d. p.r.n. 11. Cephalexin 20 mg p.o. daily. 12. Multivitamins 1 p.o. daily. 13. Habitrol 21 daily. 14. Aldactone 50 mg p.o. daily. 15. Thiamin 100 mg p.o. daily. 16. Ultram 50 mg p.o. q.6 p.r.n. Once again, the patient will be discharged in stable condition with guarded prognosis.
== END 2016-05-23 13:45 | disposition home or self-care (01) | DRG 871 ==
LOC: EC 16:53 → 5MS5E 17:45 → 6ICU 22:12 → 5MS5E 05-20 10:48
PROVIDERS: ADMIT Hospitalist; ATTEND Hospitalist
DX: A41.9 Sepsis, unspecified organism (principal); K85.20 Alcohol induced acute pancreatitis without necrosis or infection; F10.231 Alcohol dependence with withdrawal delirium; D61.818 Other pancytopenia; E44.0 Moderate protein-calorie malnutrition; E87.2 Acidosis; K76.6 Portal hypertension; J98.11 Atelectasis; E83.42 Hypomagnesemia; K70.11 Alcoholic hepatitis with ascites; K76.0 Fatty (change of) liver, not elsewhere classified; K70.31 Alcoholic cirrhosis of liver with ascites; G89.4 Chronic pain syndrome; E87.6 Hypokalemia; D73.1 Hypersplenism; M19.91 Primary osteoarthritis, unspecified site; F17.210 Nicotine dependence, cigarettes, uncomplicated; G89.29 Other chronic pain; F40.240 Claustrophobia; Z79.899 Other long term (current) drug therapy
CPT/HCPCS: 36600; 71010; 74176; 76705; 80053; 80061; 80306; 80320; 81001; 82140; 82150; 82805; 83036; 83690; 83735; 84100; 85025; 85610; 85730; 87040; 87086